=== PATIENT | female | born 1940 | race Caucasian/White ===

== ENCOUNTER 2018-03-11 19:19 | Observation (INO) ==
[2018-03-11] MEDS ORDERED: 0.9 % Sodium Chloride 1,000 ML IVC ONE (19:43)
[2018-03-11] MEDS ORDERED: Isovue-370 500 ML INFUS..BTL IV ONE (19:43)
[2018-03-11] MEDS ORDERED: *HR* FentaNYL (PF) 100 MCG/2 ML VIAL IVP ONE ×3 (19:45→20:56)
--- NOTE | 2018-03-11 19:51 | Emergency Department Note ---
Disposition Clinical Impression: Abdominal pain Qualifiers: Abdominal location: generalized Qualified Code(s): R10.84 - Generalized abdominal pain HTN (hypertension) Qualifiers: Hypertension type: unspecified Qualified Code(s): I10 - Essential (primary) hypertension Leukocytosis Qualifiers: Leukocytosis type: unspecified Qualified Code(s): D72.829 - Elevated white blood cell count, unspecified Disposition: Admitted As Inpatient Condition: Fair Referrals: Leonardo Romero MD [Primary Care Provider] - Abdominal Pain HPI - General Chief Complaint: ED Abdominal Pain Stated Complaint: Abdominal pain Time Seen by Provider: 03/11/18 19:34 Source: patient Mode of arrival: private vehicle Limitations: no limitations Nursing Notes Reviewed: Yes Vital Signs Reviewed: Yes - History of Present Illness HPI Narrative: 77-year-old female with a history of atrial fibrillation not currently on anticoagulation secondary to a prior hemorrhagic stroke, breast cancer, hypertension, prior subclavian surgery of unknown origin who presents to the ER with a complaint of abdominal pain. Patient reports her pain began acutely at 3 PM today. Earlier in the day she went and had a bowel movement which was diarrhea which is her baseline given that she is on magnesium. She states she then developed abrupt abdominal pain etc. undersides and goes to the middle. She is felt nauseous without vomiting. Nonbloody diarrhea. She has a past surgical history of cholecystectomy. No other complaints. Pt Subjective Complaint: abdominal pain Onset (ago): hour(s) Consistency: constant Location: diffuse Radiation: none Migration to: no migration Improves with: nothing Worsens with: nothing Associated symptoms: Reports: nausea, diarrhea. Denies: vomiting, fever, dysuria, hematuria Treatments prior to arrival: none - Related Data Home Medications Medication Instructions Recorded Confirmed Aspirin [Aspirin EC] 650 mg PO DAILY 03/11/18 03/11/18 Atenolol [Tenormin] 50 - 100 mg PO DAILY PRN 03/11/18 03/11/18 Biotin 800 mcg PO DAILY 03/11/18 03/11/18 Cholecalciferol (D-3) [Vitamin D] 3,000 unit PO DAILY 03/11/18 03/11/18 CloNIDine Patch [Catapres-Tts] 0.1 mg TD QWEEK 03/11/18 03/11/18 Cyanocobalamin (Vitamin B-12) 1,000 mcg PO DAILY 03/11/18 03/11/18 [Vitamin B12] Furosemide [Lasix] 20 mg PO DAILY 03/11/18 03/11/18 HYDROcodone/Acet 10/325 mg [[place] 1 tab PO Q6HR PRN 03/11/18 03/11/18 10-325 mg] Magnesium Oxide [Magnesium] 400 mg PO DAILY 03/11/18 03/11/18 Meclizine HCl [Verticalm] 25 mg PO DAILY PRN 03/11/18 03/11/18 Ondansetron HCl [Zofran] 4 mg PO DAILY PRN 03/11/18 03/11/18 Patiromer Calcium Sorbitex 8.4 gm PO DAILY 03/11/18 03/11/18 [Veltassa] Promethazine [Phenergan] 12.5 mg PO DAILY PRN 03/11/18 03/11/18 Rosuvastatin [Crestor] 20 mg PO HS PRN 03/11/18 03/11/18 Spironolactone [Aldactone] 100 mg PO DAILY 03/11/18 03/11/18 Turmeric Root Extract [Turmeric] 500 mg PO DAILY 03/11/18 03/11/18 Ubidecarenone [Coq10] 200 mg PO DAILY 03/11/18 03/11/18 Vitamin B Complex [B Complex] 1 tab PO DAILY 03/11/18 03/11/18 diazePAM [Valium] 5 mg PO BID 03/11/18 03/11/18 predniSONE [PredniSONE] 2 mg PO DAILY 03/11/18 03/11/18 Allergies Allergy/AdvReac Type Severity Reaction Status Date / Time codeine AdvReac Nausea Verified 06/13/16 18:45 morphine AdvReac See Verified 06/13/16 18:45 Comments Tetracycline AdvReac See Verified 06/13/16 18:45 Comments All systems ED: reviewed and negative except as stated. Constitutional: Denies: fever Gastrointestinal: Reports: abdominal pain, nausea, diarrhea. Denies: vomiting Genitourinary: Denies: dysuria, hematuria Abdominal Pain PMH - Past Medical History Medical history: Reports: hypertension, other Female Surgical History: Reports: other Psychiatric history: Reports: no psych history - Social History Smoking status: Never smoker Alcohol use: Reports: none Drug use: Reports: none Physical Exam - General Limitations: no limitations General appearance: alert, in distress - Head Head exam: atraumatic, normocephalic - Eye Eye exam: Present: normal appearance - ENT ENT exam: normal exam - Neck Neck exam: Present: normal inspection - Chest Chest inspection: Present: normal inspection, symmetric chest wall rise - Respiratory Respiratory exam: Present: normal lung sounds bilaterally - Cardiovascular Cardiovascular exam: Present: regular rate, normal rhythm, normal heart sounds - Abdominal Exam Abdominal exam: Present: tenderness (Diffuse tenderness with voluntary guarding) , distention, guarding. Absent: rigidity - Extremities Exam Extremities exam: Present: normal inspection, full ROM - Expanded Upper Extremity Exam Shoulder exam: Present: normal inspection, full ROM Arm exam: Present: normal inspection, full ROM Elbow exam: Present: normal inspection, full ROM Forearm/Wrist exam: Present: normal inspection, full ROM Hand exam: Present: normal inspection, full ROM - Expanded Lower Extremity Exam Hip/Pelvis exam: Present: normal inspection, full ROM Upper leg exam: Present: normal inspection, full ROM Knee exam: Present: normal inspection, full ROM Lower leg exam: Present: normal inspection, full ROM Ankle exam: Present: normal inspection, full ROM Foot/toe exam: Present: normal inspection, full ROM - Skin Skin exam: Present: warm, dry Course Course Narrative: Patient seen and examined. Significant concern given her history as well as exam findings. Discussed with radiology for emergent angiogram of the abdomen in lieu of labs. The patient will be taken now for evaluation 19:54 - Reevaluation(s) Reevaluation #1: Patient remains in pain after 2 doses of femoral. Additional dose ordered as well as Dilaudid. Surgery re-paged. Time: 20:58 Reevaluation #2: Discussed results of imaging with the patient. Agreeable with plan. Request something else for pain. - Consultations Consultation #1: I spoke with the radiologist reading the patient's images. Discussed the patient's history and exam as well as concerns. They see no evidence of embolic event. She is noted to have a dilated appendix with an appendicolith with concerns for potential early acute appendicitis. Consultation #2: I spoke with the on-call surgeon Dr. Nielsen. Discussed the patient's history exam imaging and labs. She demonstrates involuntary guarding on exam. Angiogram was negative for findings of ischemia or embolic events. She has severe peripheral vascular disease. Labs demonstrated a leukocytosis of 17.5 with a normal lactate. Discussed her exam as well as gestalt. Her history does not seem consistent with appendicitis given the abrupt nature of her symptoms. They recommend admission to the hospitalist with surgical consultation. Consultation #3: I spoke with the on-call vascular surgeon Dr. Valero. Discussed the patient's history exam as well as imaging and labs. Discussed peritoneal features. Also discussed speaking with the radiologist to confirm that the patient had distal flow without evidence of embolism or occlusion. They have no acute recommendations from a vascular standpoint. They recommend serial exams, IV fluids as well as to recheck lactic acids. Vital Signs Temperature 97.8 F 03/11/18 20:50 Pulse Rate 73 03/11/18 20:50 Respiratory Rate 18 03/11/18 20:50 Blood Pressure 211/81 03/11/18 20:50 O2 Sat by Pulse Oximetry 95 03/11/18 20:50 Temperature 97.8 F 03/11/18 20:50 Pulse Rate 73 03/11/18 20:50 Respiratory Rate 18 03/11/18 20:50 Blood Pressure 211/81 03/11/18 20:50 O2 Sat by Pulse Oximetry 95 03/11/18 20:50 Oxygen Delivery Oxygen Delivery Room Air Abdominal Pain - MDM Narrative Medical decision making narrative: 77-year-old female with abdominal pain since 3 PM today. Noted to have a leukocytosis of 17.[address] findings suggestive of early acute appendicitis. Pain was difficult to control in the emergency department requiring multiple doses of narcotics. Her exam is concerning which prompted discussions with both general surgery and vascular surgery. I personally spoke with the radiologist as well who saw patent flow without evidence of acute embolism. The patient is admitted to the hospitalist service for pain control, serial exams, serial lactate evaluations with surgical and vascular consultations. - Lab Data Lab results reviewed: Yes I reviewed the patient's lab results. Result diagrams: 03/11/18 19:43 03/11/18 19:43 Lab Results 03/11/18 03/11/18 03/11/18 Range/Units 19:43 19:43 19:43 WBC 17.5 H (4.3-11.1) K/mcL RBC 4.66 (3.82-4.97) M/mcL Hgb 15.0 (11.5-15.4) g/dL Hct 44.7 (35.3-44.9) % MCV 95.9 (83.0-100.0) fL MCH 32.2 (28.0-33.3) pg MCHC 33.6 (31.6-35.5) g/dL RDW 13.0 (11.5-14.5) % Plt Count 253 (140-400) K/mcL MPV 10.6 (9.4-12.4) fL Immature Gran % 0.5 (0-4) % Seg Neutrophils % 79.6 % Lymphocytes % 10.0 % Monocytes % 8.7 % Eosinophils % 0.7 % Basophils % 0.5 % Neutrophils # 14.0 H (1.6-8.9) K/mcL Lymphocytes # 1.8 (0.6-4.6) K/mcL Monocytes # 1.5 H (0.0-1.3) K/mcL Eosinophils # 0.1 (0.0-0.6) K/mcL Basophils # 0.1 (0.0-0.2) K/mcL PT 11.8 (9.4-12.1) Seconds INR 1.0 APTT 31.8 (26.0-36.0) Seconds Sodium 137 (136-145) mEq/L Potassium 4.1 (3.5-5.1) mEq/L Chloride 94 L (98-107) mEq/L Carbon Dioxide 34 H (23-29) mEq/L BUN 28 H (8-23) mg/dL Creatinine 0.94 (0.60-1.20) mg/dL Est GFR ( Amer) > 60 (> 60) Est GFR (Non-Af Amer) 57 L (> 60) BUN/Creatinine Ratio 30 H (6-26) Glucose 159 H (70-105) mg/dL Calculated Osmolality 293 (280-300) Lactic Acid (0.5-2.2) mmol/L Calcium 10.6 H (8.6-10.3) mg/dL Total Bilirubin 0.5 (0.3-1.0) mg/dL Direct Bilirubin 0.1 (0.0-0.2) mg/dL Indirect Bilirubin 0.4 (0.0-1.2) mg/dL AST 19 (13-39) Units/L ALT 19 (7-52) Units/L Alkaline Phosphatase 59 (34-104) Units/L Troponin I < 0.03 (< 0.04) ng/mL Serum Total Protein 7.2 (6.4-8.9) g/dL Albumin 4.2 (3.5-5.7) g/dL Globulin 3.0 (2.4-3.5) g/dL Albumin/Globulin Ratio 1.4 (1.1-2.2) Lipase 24 (11-82) Units/L Urine Color (Yellow) Urine Clarity (Clear) Urine pH (5.0-8.0) pH Units Ur Specific [place] (1.010-1.025) Urine Protein (Neg-Trace) mg/dL Urine Glucose (UA) (Normal) mg/dL Urine Ketones (Negative) mg/dL Urine Blood (Negative) Urine Nitrite (Negative) Urine Bilirubin (Negative) Urine Urobilinogen (Normal) mg/dL Ur Leukocyte Esterase (Negative) Urine Microscopic RBC (0-3) per hpf Urine Microscopic WBC (0-3) per hpf Ur Squamous Epith Cells (None-Few) per lpf Urine Bacteria (None-Few) per hpf Hyaline Casts (None-Few) per lpf Ur Culture Indicated? (NO) 03/11/18 03/11/18 Range/Units 20:22 20:42 WBC (4.3-11.1) K/mcL RBC (3.82-4.97) M/mcL Hgb (11.5-15.4) g/dL Hct (35.3-44.9) % MCV (83.0-100.0) fL MCH (28.0-33.3) pg MCHC (31.6-35.5) g/dL RDW (11.5-14.5) % Plt Count (140-400) K/mcL MPV (9.4-12.4) fL Immature Gran % (0-4) % Seg Neutrophils % % Lymphocytes % % Monocytes % % Eosinophils % % Basophils % % Neutrophils # (1.6-8.9) K/mcL Lymphocytes # (0.6-4.6) K/mcL Monocytes # (0.0-1.3) K/mcL Eosinophils # (0.0-0.6) K/mcL Basophils # (0.0-0.2) K/mcL PT (9.4-12.1) Seconds INR APTT (26.0-36.0) Seconds Sodium (136-145) mEq/L Potassium (3.5-5.1) mEq/L Chloride (98-107) mEq/L Carbon Dioxide (23-29) mEq/L BUN (8-23) mg/dL Creatinine (0.60-1.20) mg/dL Est GFR ( Amer) (> 60) Est GFR (Non-Af Amer) (> 60) BUN/Creatinine Ratio (6-26) Glucose (70-105) mg/dL Calculated Osmolality (280-300) Lactic Acid 1.3 (0.5-2.2) mmol/L Calcium (8.6-10.3) mg/dL Total Bilirubin (0.3-1.0) mg/dL Direct Bilirubin (0.0-0.2) mg/dL Indirect Bilirubin (0.0-1.2) mg/dL AST (13-39) Units/L ALT (7-52) Units/L Alkaline Phosphatase (34-104) Units/L Troponin I (< 0.04) ng/mL Serum Total Protein (6.4-8.9) g/dL Albumin (3.5-5.7) g/dL Globulin (2.4-3.5) g/dL Albumin/Globulin Ratio (1.1-2.2) Lipase (11-82) Units/L Urine Color Yellow (Yellow) Urine Clarity Clear (Clear) Urine pH 6.5 (5.0-8.0) pH Units Ur Specific [place] 1.030 H (1.010-1.025) Urine Protein Negative (Neg-Trace) mg/dL Urine Glucose (UA) Normal (Normal) mg/dL Urine Ketones Negative (Negative) mg/dL Urine Blood Negative (Negative) Urine Nitrite Negative (Negative) Urine Bilirubin Negative (Negative) Urine Urobilinogen Normal (Normal) mg/dL Ur Leukocyte Esterase Trace H (Negative) Urine Microscopic RBC 0-3 (0-3) per hpf Urine Microscopic WBC 3-5 H (0-3) per hpf Ur Squamous Epith Cells Moderate H (None-Few) per lpf Urine Bacteria None Seen (None-Few) per hpf Hyaline Casts None Seen (None-Few) per lpf Ur Culture Indicated? YES A (NO) - Radiology Data Radiology results reviewed: Yes I reviewed the patient's radiology results. Abdomen/Pelvis CTA 03/11/18 19:44 IMPRESSION: 1. Newly dilated fluid filled appendix up to 9 mm with appendicolith at the appendiceal origin. Although there are no periappendiceal inflammatory changes, findings are concerning for early acute appendicitis. No adjacent abscess. No free intraperitoneal air. 2. Severe atherosclerosis. 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 Collateral flow is noted in the left common femoral and superficial femoral arteries. 3. 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 No vessel occlusion or mesenteric arterial embolus identified. Findings were discussed with Gerhard Hartley at 8:50 pm on 03/11/2018. D/ / 03/11/2018 20:55:09 Odell Galan MD / [facility] Interpreting Provider: MD Whitney Granda - Whitney Situation: Demographics, MOA Background: Presenting Complaint, Relevant PMH, Meds, & Allergies Assessment: Vital Signs, Course and respsone to treatment, Exam Concerns, Patient/Family Expectation, Pertinant Lab Results Recommendation: Barrier(s) to disposition, Recommendation based on pending studies, treatments, or consults Whitney Report Given to: Dr. Ally Olson Repor Time: 21:16 (Requests vascular surgery consultation)
[2018-03-11] MEDS: Ondansetron 4 MG/2 ML VIAL IVP ONE ×2 (19:58→20:47)
[2018-03-11 20:15] LABS: Basophils # 0.1 K/mcL (0.0-0.2); Basophils % 0.5 %; Eosinophils # 0.1 K/mcL (0.0-0.6); Eosinophils % 0.7 %; Hematocrit 44.7 % (35.3-44.9); Immature Granulocytes % 0.5 % (0-4); Lymphocytes # 1.8 K/mcL (0.6-4.6); Mean Corpuscular HGB Conc 33.6 g/dL (31.6-35.5); Mean Corpuscular Hemoglobin 32.2 pg (28.0-33.3); Mean Corpuscular Volume 95.9 fL (83.0-100.0); Mean Platelet Volume 10.6 fL (9.4-12.4); Monocytes # 1.5 K/mcL (0.0-1.3); Monocytes % 8.7 %; Platelet Count 253 K/mcL (140-400); Red Blood Count 4.66 M/mcL (3.82-4.97); Segmented Neutrophils % 79.6 %
[2018-03-11 20:25] LABS: Prothrombin Time 11.8 Seconds (9.4-12.1)
[2018-03-11 20:28] LABS: Activated Partial Thrombo Time 31.8 Seconds (26.0-36.0)
--- NOTE | 2018-03-11 20:31 | Emergency Department Note ---
Disposition Clinical Impression: Abdominal pain Qualifiers: Abdominal location: generalized Qualified Code(s): R10.84 - Generalized abdominal pain HTN (hypertension) Qualifiers: Hypertension type: unspecified Qualified Code(s): I10 - Essential (primary) hypertension Disposition: Admitted As Inpatient Referrals: Leonardo Romero MD [Primary Care Provider] - General Adult HPI - General Chief complaint: ED Abdominal Pain Stated complaint: Abdominal pain Time Seen by Provider: 03/11/18 19:34 Source: patient Mode of arrival: private vehicle Limitations: no limitations - Related Data Home Medications Medication Instructions Recorded Confirmed Adult Probiotic 06/13/16 Aspirin 06/13/16 Atenolol 06/13/16 Biotin 06/13/16 Cardura 06/13/16 06/13/16 CloNIDine HCl 06/13/16 CloNIDine Patch 06/13/16 Co Q-10 06/13/16 Crestor 06/13/16 D3 3,000 06/13/16 Diazepam 06/13/16 Furosemide 06/13/16 Garlic 06/13/16 Hydrocodone-Acetamin 10-325/15 06/13/16 Meclizine 06/13/16 PredniSONE 06/13/16 Zinc 06/13/16 Previous Rx's Medication Instructions Recorded levoFLOXacin [Levaquin] 500 mg PO DAILY #7 tablet 06/13/16 Brompheniramine/Pseudoephed/Dm 5 ml PO QID #118 ml 07/06/16 [Bromfed Dm Cough Syrup] Cefdinir [Omnicef] 300 mg PO BID #20 capsule 07/06/16 methylPREDNISolone [Medrol] 4 mg PO DAILY #21 tablet 07/06/16 Hydrocortisone 2.5% CREAM [Cortaid] 1 appl TP BID #1 tube 08/31/16 cloNIDine HCl [CloNIDine HCl] 0.1 mg PO ONCE PRN #10 tablet 09/01/17 levoFLOXacin [Levaquin] 250 mg PO DAILY #7 tablet 09/01/17 Lidocaine Patch [Lidoderm 5% patch] 1 each TP DAILY PRN #10 adh..patch 12/03/17 Allergies Allergy/AdvReac Type Severity Reaction Status Date / Time codeine AdvReac Nausea Verified 06/13/16 18:45 morphine AdvReac See Verified 06/13/16 18:45 Comments Tetracycline AdvReac See Verified 06/13/16 18:45 Comments Constitutional: Denies: fever Gastrointestinal: Reports: abdominal pain, nausea, diarrhea. Denies: vomiting Genitourinary: Denies: dysuria, hematuria Past Medical History - Past Medical History Medical history: Reports: hypertension, other Psychiatric history: Reports: no psych history - Social History Smoking Status: Never smoker Smokeless Tobacco Status: No Alcohol use: Reports: none Drug use: Reports: none Physical Exam - General Limitations: no limitations General appearance: alert, in distress Medical Decision Making - Lab Data Result diagrams: 03/11/18 19:43 03/11/18 19:43 Lab Results 03/11/18 03/11/18 03/11/18 Range/Units 19:43 19:43 19:43 WBC 17.5 H (4.3-11.1) K/mcL RBC 4.66 (3.82-4.97) M/mcL Hgb 15.0 (11.5-15.4) g/dL Hct 44.7 (35.3-44.9) % MCV 95.9 (83.0-100.0) fL MCH 32.2 (28.0-33.3) pg MCHC 33.6 (31.6-35.5) g/dL RDW 13.0 (11.5-14.5) % Plt Count 253 (140-400) K/mcL MPV 10.6 (9.4-12.4) fL Immature Gran % 0.5 (0-4) % Seg Neutrophils % 79.6 % Lymphocytes % 10.0 % Monocytes % 8.7 % Eosinophils % 0.7 % Basophils % 0.5 % Neutrophils # 14.0 H (1.6-8.9) K/mcL Lymphocytes # 1.8 (0.6-4.6) K/mcL Monocytes # 1.5 H (0.0-1.3) K/mcL Eosinophils # 0.1 (0.0-0.6) K/mcL Basophils # 0.1 (0.0-0.2) K/mcL PT 11.8 (9.4-12.1) Seconds INR 1.0 APTT 31.8 (26.0-36.0) Seconds Sodium 137 (136-145) mEq/L Potassium 4.1 (3.5-5.1) mEq/L Chloride 94 L (98-107) mEq/L Carbon Dioxide 34 H (23-29) mEq/L BUN 28 H (8-23) mg/dL Creatinine 0.94 (0.60-1.20) mg/dL Est GFR ( Amer) > 60 (> 60) Est GFR (Non-Af Amer) 57 L (> 60) BUN/Creatinine Ratio 30 H (6-26) Glucose 159 H (70-105) mg/dL Calculated Osmolality 293 (280-300) Lactic Acid (0.5-2.2) mmol/L Calcium 10.6 H (8.6-10.3) mg/dL Total Bilirubin 0.5 (0.3-1.0) mg/dL Direct Bilirubin 0.1 (0.0-0.2) mg/dL Indirect Bilirubin 0.4 (0.0-1.2) mg/dL AST 19 (13-39) Units/L ALT 19 (7-52) Units/L Alkaline Phosphatase 59 (34-104) Units/L Troponin I < 0.03 (< 0.04) ng/mL Serum Total Protein 7.2 (6.4-8.9) g/dL Albumin 4.2 (3.5-5.7) g/dL Globulin 3.0 (2.4-3.5) g/dL Albumin/Globulin Ratio 1.4 (1.1-2.2) Lipase 24 (11-82) Units/L // Range/Units 20:22 WBC (4.3-11.1) K/mcL RBC (3.82-4.97) M/mcL Hgb (11.5-15.4) g/dL Hct (35.3-44.9) % MCV (83.0-100.0) fL MCH (28.0-33.3) pg MCHC (31.6-35.5) g/dL RDW (11.5-14.5) % Plt Count (140-400) K/mcL MPV (9.4-12.4) fL Immature Gran % (0-4) % Seg Neutrophils % % Lymphocytes % % Monocytes % % Eosinophils % % Basophils % % Neutrophils # (1.6-8.9) K/mcL Lymphocytes # (0.6-4.6) K/mcL Monocytes # (0.0-1.3) K/mcL Eosinophils # (0.0-0.6) K/mcL Basophils # (0.0-0.2) K/mcL PT (9.4-12.1) Seconds INR APTT (26.0-36.0) Seconds Sodium (136-145) mEq/L Potassium (3.5-5.1) mEq/L Chloride (98-107) mEq/L Carbon Dioxide (23-29) mEq/L BUN (8-23) mg/dL Creatinine (0.60-1.20) mg/dL Est GFR ( Amer) (> 60) Est GFR (Non-Af Amer) (> 60) BUN/Creatinine Ratio (6-26) Glucose (70-105) mg/dL Calculated Osmolality (280-300) Lactic Acid 1.3 (0.5-2.2) mmol/L Calcium (8.6-10.3) mg/dL Total Bilirubin (0.3-1.0) mg/dL Direct Bilirubin (0.0-0.2) mg/dL Indirect Bilirubin (0.0-1.2) mg/dL AST (13-39) Units/L ALT (7-52) Units/L Alkaline Phosphatase (34-104) Units/L Troponin I (< 0.04) ng/mL Serum Total Protein (6.4-8.9) g/dL Albumin (3.5-5.7) g/dL Globulin (2.4-3.5) g/dL Albumin/Globulin Ratio (1.1-2.2) Lipase (11-82) Units/L Attestation Statement - Attestation Attestation: I examined this patient and my medical decision-making was reviewed with the Resident Physician. I agree with the documented findings, disposition and treatment plan as described except to the extent set forth below. 77-year-old female presents emergency room for abdominal pain. Started suddenly this afternoon around 3 PM. Patient is guarding and very tender. seems peritoneal. possible perf vs ischemic. Radiology feels that she may have an early appendicitis based on her CT findings. She is also to hypertensive secondary to pain. She has a lot of guarding or peritoneal findings. We will consult with general surgery. Her lactate is negative which would rule out any ischemic properties and her CTA of the abdomen and pelvis did not reveal any acute occlusions. The only thing at this time is the abnormal appendix which is dilated with a appendicolith. This would indicate more acute appendicitis at this point and based on her physical examination this would indicate acute appy will tx her pain and see if her BP comes down.
[2018-03-11 20:32] LABS: Troponin I < 0.03 ng/mL (< 0.04)
[2018-03-11 20:33] LABS: Alanine Aminotransferase 19 Units/L (7-52); Albumin 4.2 g/dL (3.5-5.7); Albumin/Globulin Ratio 1.4 (1.1-2.2); Alkaline Phosphatase 59 Units/L (34-104); Aspartate Amino Transferase 19 Units/L (13-39); BUN/Creatinine Ratio 30 (6-26); Bilirubin,Direct 0.1 mg/dL (0.0-0.2); Bilirubin,Indirect 0.4 mg/dL (0.0-1.2); Bilirubin,Total 0.5 mg/dL (0.3-1.0); Blood Urea Nitrogen 28 mg/dL (8-23); Calcium 10.6 mg/dL (8.6-10.3); Carbon Dioxide 34 mEq/L (23-29); Chloride 94 mEq/L (98-107); Glucose 159 mg/dL (70-105); Lipase 24 Units/L (11-82); Osmolality,Calculated 293 (280-300); Potassium 4.1 mEq/L (3.5-5.1); Sodium 137 mEq/L (136-145); Total Protein 7.2 g/dL (6.4-8.9); eGFR For Non-African Americans 57 (> 60)
[2018-03-11] MEDS ORDERED: Ondansetron 4 MG/2 ML VIAL ONE (20:41)
[2018-03-11 20:53] LABS: Bilirubin,Urine Negative (Negative); Blood,Urine Negative (Negative); Clarity,Urine Clear (Clear); Color,Urine Yellow (Yellow); Glucose,Urine (UA) Normal (Normal); Ketones,Urine Negative (Negative); Leukocyte Esterase,Urine Trace (Negative); Nitrite,Urine Negative (Negative); PH,Urine 6.5 pH Units (5.0-8.0); Protein,Urine Negative (Neg-Trace); Urobilinogen,Urine Normal (Normal)
[2018-03-11] MEDS ORDERED: *HR* HYDROmorphone (PF) 1 MG/ML SYRINGE IVP ONE (20:53)
[2018-03-11 20:57] LABS: Bacteria,Urine None Seen per hpf (None-Few); Hyaline Casts,Urine None Seen per lpf (None-Few); RBC,Urine 0-3 per hpf (0-3); Squamous Epithelial Cell,Urine Moderate per lpf (None-Few)
[2018-03-11] MEDS ORDERED: Piperacillin/Tazobactam 3.375 GM in 0.9 % Sodium Chloride Mini Bag 100 ML IVPB ONE (20:57)
[2018-03-11] MEDS ORDERED: Ondansetron 4 MG/2 ML VIAL IVP PRN (21:15)
[2018-03-11] MEDS ORDERED: Naloxone 0.4 MG/ML INJ IVP PRN (21:15)
[2018-03-11] MEDS ORDERED: OXYCODONE Oral CONC 10 MG/0.5 ML ORAL.SYG SL PRN (21:15)
[2018-03-11] MEDS ORDERED: *HR* Labetalol 20 MG/4 ML SYRINGE IVP PRN (21:24)
--- NOTE | 2018-03-11 21:56 | Internal Med History&Physical ---
Date of Encounter: 03/11/18 Time of Encounter: 22:30 Internal Medicine - H&P: HPI Chief complaint: abdominal pain Admitted From: Home History of present illness: Ms. Mendez is a 77 year old female with history of atrial fibrillation not currently on anticoagulation secondary to a prior hemorrhagic stroke, CAD status post CABG, breast cancer, hypertension, presented to the ER with abdominal pain. Patient states that her pain acutely started at about 3:00 this afternoon. She also had watery diarrhea prior to the onset of abdominal pain for which she took Magnesium. Generalized, non-radiating, no aggravating/ relieving factors. She is felt nauseous but did not vomit. Diarrhea was non- bloody, non-bilious. She states that she has intermittnet bloating and "abdominal swelling' that happens usually after she eats. She has a past surgical history of cholecystectomy. Denies any chest pain, shortness of breath , cough, sputum production, or dysuria. In the emergency department, she was afebrile and hemodynamically stable. Blood pressure was elevated at 211/81. Labs were notable for leukocytosis of 17.5. Normal lactic acid and creatinine. Troponin and lipase were both negative. CT abdomen showed changes possibly suggestive of early acute appendicitis. 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 Her findings were discussed with both surgery and vascular surgery from the ED and it was decided to manage her conservatively and follow her up with serial exams. She was started on IV fluid and IV Zosyn and admitted for further management. Past Med Surg Social Fam HX - Past Medical History Attestation: Yes The following information was validated with the patient. Medical history: coronary artery disease, hypertension, other Additional medical history: brain bleed Psychiatric history: no psych history - Past Surgical History Surgical History: coronary bypass (CABG) Additional surgical history: Brain/surgery for blood flow - Social History Smoking Status: Never smoker Smokeless Tobacco Status: No Alcohol use: none Drug use: none Internal Medicine - H&P: Meds Aspirin [Aspirin EC] 650 mg PO DAILY 03/11/18 [History] Atenolol [Tenormin] 50 - 100 mg PO DAILY PRN 03/11/18 [History] Biotin 800 mcg PO DAILY 03/11/18 [History] Cholecalciferol (D-3) [Vitamin D] 3,000 unit PO DAILY 03/11/18 [History] CloNIDine Patch [Catapres-Tts] 0.1 mg TD QWEEK 03/11/18 [History] Cyanocobalamin (Vitamin B-12) [Vitamin B12] 1,000 mcg PO DAILY 03/11/18 [History ] Furosemide [Lasix] 20 mg PO DAILY 03/11/18 [History] HYDROcodone/Acet 10/325 mg [[place] 10-325 mg] 1 tab PO Q6HR PRN 03/11/18 [History ] Magnesium Oxide [Magnesium] 400 mg PO DAILY 03/11/18 [History] Meclizine HCl [Verticalm] 25 mg PO DAILY PRN 03/11/18 [History] Ondansetron HCl [Zofran] 4 mg PO DAILY PRN 03/11/18 [History] Patiromer Calcium Sorbitex [Veltassa] 8.4 gm PO DAILY 03/11/18 [History] Promethazine [Phenergan] 12.5 mg PO DAILY PRN 03/11/18 [History] Rosuvastatin [Crestor] 20 mg PO HS PRN 03/11/18 [History] Spironolactone [Aldactone] 100 mg PO DAILY 03/11/18 [History] Turmeric Root Extract [Turmeric] 500 mg PO DAILY 03/11/18 [History] Ubidecarenone [Coq10] 200 mg PO DAILY 03/11/18 [History] Vitamin B Complex [B Complex] 1 tab PO DAILY 03/11/18 [History] diazePAM [Valium] 5 mg PO BID 03/11/18 [History] predniSONE [PredniSONE] 2 mg PO DAILY 03/11/18 [History] 3 Allergy/AdvReac Type Severity Reaction Status Date / Time codeine AdvReac Nausea Verified 06/13/16 18:45 morphine AdvReac See Verified 06/13/16 18:45 Comments Tetracycline AdvReac See Verified 06/13/16 18:45 Comments All Systems PM: A 10-system review of systems was performed and is negative for pertinent findings except as documented above in the HPI. - Constitutional Vitals: Temp Pulse Resp BP Pulse Ox 97.8 F 73 18 211/81 95 03/11/18 20:50 03/11/18 20:50 03/11/18 20:50 03/11/18 20:50 03/11/18 20:50 Exam: General: Alert and oriented, mild distress due to pain HEENT:EOM, pupils equal, round and reactive. Cardiovascular:Normal S1 & S2, No JVD. Pulse regular. Lungs: clear to auscultation, no wheezes/rales Abdomen:Soft, generalized tenderness worst on RLQ region. Voluntary guarding. No rebound/rigidity. Extremities:No deformity or swelling Neurological:Normal cognition and motor skills. Non-focal Skin:Normal color, no rash, no lesions. Pulses:Carotid and radial pulses normal +2. Rest of the physical exam is non contributory Internal Med - H&P Results - Labs CBC & Chem 7: 03/11/18 19:43 03/11/18 19:43 - Assessment and plan (1) Abdominal pain Current Visit: Yes Status: Acute Assessment and plan: Unclear whether it is due to early appendicitis versus acute on chronic mesenteric ischemia Regardless, there is no evidence of perforation or bowel necrosis. Given her significant cardiac history, will rule out ACS with another troponin. Check EKG Started on IV fluid and IV Zosyn in the ER, continue Serial abdominal exam Check lactic acid again in the morning Following surgery and vascular surgery Qualifiers: Abdominal location: generalized Qualified Code(s): R10.84 - Generalized abdominal pain (2) Atrial fibrillation Current Visit: Yes Status: Acute Assessment and plan: Not on anticoagulation due to history of hemorrhagic stroke as the risk of arterial embolism is high no evidence of embolus on CTA however will continue to monitor as above, resume atenolol when able to take by mouth Qualifiers: Atrial fibrillation type: unspecified Qualified Code(s): I48.91 - Unspecified atrial fibrillation (3) CAD (coronary artery disease) Current Visit: Yes Status: Acute Assessment and plan: Management as above Resume all meds when able to Qualifiers: Coronary Disease-Associated Artery/Lesion type: unspecified vessel or lesion type [place] vs. transplanted heart: pala heart Associated angina: angina presence unspecified Qualified Code(s): I25.10 - Atherosclerotic heart disease of pala coronary artery without angina pectoris (4) Hypertension Current Visit: Yes Status: Acute Assessment and plan: On Aldactone, clonidine patch, and atenolol Since patient is nothing by mouth, will continue the clonidine patch with when necessary labetalol. Qualifiers: Hypertension type: unspecified Qualified Code(s): I10 - Essential (primary ) hypertension (5) DVT prophylaxis Current Visit: Yes Status: Acute Assessment and plan: History of hemorrhagic stroke, not on anticoagulation for A. fib as well SCD - Time Spent With Patient Total time spent is greater than 50% in coordination of care (as documented) at patient's floor/unit and/or counseling patient:
[2018-03-11] MEDS ORDERED: *HR* Promethazine 25 MG/ML VIAL IVP PRN (22:57)
[2018-03-11] MEDS: OXYCODONE Oral CONC 10 MG/0.5 ML ORAL.SYG SL PRN (23:22)
[2018-03-11] MEDS ORDERED: CloNIDine Patch 0.1 MG PATCH (WEEKLY) TD SCH (23:45)
[2018-03-12] MEDS: 0.9 % Sodium Chloride 1,000 ML IVC SCH ×2 (01:08→12:06)
[2018-03-12] MEDS: *HR* FentaNYL (PF) 100 MCG/2 ML VIAL IVP PRN ×4 (01:13→23:30)
[2018-03-12 02:17] LABS: BUN/Creatinine Ratio 24 (6-26); Blood Urea Nitrogen 21 mg/dL (8-23); Calcium 10.4 mg/dL (8.6-10.3); Carbon Dioxide 32 mEq/L (23-29); Chloride 94 mEq/L (98-107); Glucose 159 mg/dL (70-105); Magnesium 1.6 mg/dL (1.6-2.6); Osmolality,Calculated 286 (280-300); Potassium 3.8 mEq/L (3.5-5.1); Sodium 135 mEq/L (136-145); eGFR For Non-African Americans > 60 (> 60)
[2018-03-12 02:19] LABS: Basophils # 0.1 K/mcL (0.0-0.2); Basophils % 0.3 %; Hematocrit 45.6 % (35.3-44.9); Hemoglobin 15.1 g/dL (11.5-15.4); Immature Granulocytes % 0.5 % (0-4); Lymphocytes # 0.7 K/mcL (0.6-4.6); Lymphocytes % 3.7 %; Mean Corpuscular HGB Conc 33.1 g/dL (31.6-35.5); Mean Corpuscular Hemoglobin 32.5 pg (28.0-33.3); Mean Corpuscular Volume 98.3 fL (83.0-100.0); Mean Platelet Volume 11.2 fL (9.4-12.4); Monocytes % 5.4 %; Neutrophils # 17.1 K/mcL (1.6-8.9); Platelet Count 241 K/mcL (140-400); Red Blood Count 4.64 M/mcL (3.82-4.97); Red Cell Distribution Width 12.8 % (11.5-14.5); Segmented Neutrophils % 90.1 %
[2018-03-12] MEDS ORDERED: 0.9 % Sodium Chloride 1,000 ML IVC ONE (02:45)
[2018-03-12] MEDS: Piperacillin/Tazobactam 3.375 GM in 0.9 % Sodium Chloride Mini Bag 100 ML IVPB SCH ×2 (05:57→17:59)
[2018-03-12] MEDS: OXYCODONE Oral CONC 10 MG/0.5 ML ORAL.SYG SL PRN ×2 (06:11→12:06)
--- NOTE | 2018-03-12 07:57 | General Surgery Consult Note ---
<Ana Cristina Scales E - Last Filed: 03/12/18 08:16> Date of Encounter: 03/12/18 Time of Encounter: 07:50 Assessment and Plan (1) Acute appendicitis Current Visit: Yes Status: Acute Yesterday patient had acute diffuse abdominal discomfort with no periappendiceal changes, today ahs localized tenderness in the RLQ. WBC count increased to 19 from 17.[address] scan shows newly dilated fluid filled appendiz with appendicolith, no adjacent abscess, no free intraperitoneal air. This is concerning for acute appendicitis Surgery recommends laproscopic appendectomy today NPO IV fluids as per primary Pain control Supportive care CT/CT angio abdomen pelvis IMPRESSION: 1. Newly dilated fluid filled appendix up to 9 mm with appendicolith at the appendiceal origin. Although there are no periappendiceal inflammatory changes, findings are concerning for early acute appendicitis. No adjacent abscess. No free intraperitoneal air. 2. Severe atherosclerosis. 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 Collateral flow is noted in the left common femoral and superficial femoral arteries. 3. 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 No vessel occlusion or mesenteric arterial embolus identified. Findings were discussed with Gerhard Hartley at 8:50 pm on 03/11/2018. D/ / 03/11/2018 20:55:09 Oedll Galan MD / denise Qualifiers: Qualified Code(s): K35.80 - Unspecified acute appendicitis History of Present Illness Consult date: 03/11/18 Requesting physician: Don Canales History of present illness: Ms. Mendez is a 77 yowf who presented to the ED on 03/11/18 with diffuse abdominal pain that had began around 3pm. She states that she had some watery diarrhea before the onset of pain but she states that she has that often and she takes magnesium for this. She states she felt bloated and her upper abdomen was very painful. Today her symptoms have localized to her right lower quadrant and she has less bloating. Her medical history includes Afib which she is being treated with two aspirins a day after having a hemorrhagic stroke while on blood thinners, CAD post CABG, HTN, and breast cancer. Abdominal surgeries include cholecystectomy. Last bowel movement was yesterday, has not been able to pass gas since. Past Med Surg Social Fam HX - Past Medical History Medical history: coronary artery disease, hypertension, other Additional medical history: brain bleed Psychiatric history: no psych history - Past Surgical History Surgical History: coronary bypass (CABG) Additional surgical history: Brain/surgery for blood flow - Social History Smoking Status: Never smoker Smokeless Tobacco Status: No Alcohol use: none Drug use: none Medications and Allergies Aspirin [Aspirin EC] 650 mg PO DAILY 03/11/18 [History] Atenolol [Tenormin] 50 - 100 mg PO DAILY PRN 03/11/18 [History] Biotin 800 mcg PO DAILY 03/11/18 [History] Cholecalciferol (D-3) [Vitamin D] 3,000 unit PO DAILY 03/11/18 [History] CloNIDine Patch [Catapres-Tts] 0.1 mg TD QWEEK 03/11/18 [History] Cyanocobalamin (Vitamin B-12) [Vitamin B12] 1,000 mcg PO DAILY 03/11/18 [History ] Furosemide [Lasix] 20 mg PO DAILY 03/11/18 [History] HYDROcodone/Acet 10/325 mg [[place] 10-325 mg] 1 tab PO Q6HR PRN 03/11/18 [History ] Magnesium Oxide [Magnesium] 400 mg PO DAILY 03/11/18 [History] Meclizine HCl [Verticalm] 25 mg PO DAILY PRN 03/11/18 [History] Ondansetron HCl [Zofran] 4 mg PO DAILY PRN 03/11/18 [History] Patiromer Calcium Sorbitex [Veltassa] 8.4 gm PO DAILY 03/11/18 [History] Promethazine [Phenergan] 12.5 mg PO DAILY PRN 03/11/18 [History] Rosuvastatin [Crestor] 20 mg PO HS PRN 03/11/18 [History] Spironolactone [Aldactone] 100 mg PO DAILY 03/11/18 [History] Turmeric Root Extract [Turmeric] 500 mg PO DAILY 03/11/18 [History] Ubidecarenone [Coq10] 200 mg PO DAILY 03/11/18 [History] Vitamin B Complex [B Complex] 1 tab PO DAILY 03/11/18 [History] diazePAM [Valium] 5 mg PO BID 03/11/18 [History] predniSONE [PredniSONE] 2 mg PO DAILY 03/11/18 [History] 3 Allergy/AdvReac Type Severity Reaction Status Date / Time latex Allergy Rash Verified 03/12/18 04:18 codeine AdvReac Nausea Verified 06/13/16 18:45 morphine AdvReac See Verified 06/13/16 18:45 Comments Tetracycline AdvReac See Verified 06/13/16 18:45 Comments Review of Systems All systems PM: The remainder of the systems were reviewed and are negative - Constitutional as per HPI - Cardiovascular no chest pain, no radiating jaw, neck or arm pain - Respiratory no cough, no dyspnea, no chest congestion - Gastrointestinal loose stools, nausea, no hematemesis, no melena, no vomiting General Surgery Exam Initial Vital Signs Temp Pulse Resp BP Pulse Ox 97.8 F 73 18 211/81 95 03/11/18 20:50 03/11/18 20:50 03/11/18 20:50 03/11/18 20:50 03/11/18 20:50 - General physical appearance well developed, well nourished, moderate distress - Respiratory normal expansion, normal respiratory effort, clear to auscultation - Cardiovascular Cardiovascular exam: Present: RRR, no murmurs/rubs/gallops - Abdomen Abdomen general surgery: Present: bowel sounds present, tender, guarding, rebound Abdominal Tenderness: Present: RLQ - Musculoskeletal Present: normal posture - Psychiatric Psychiatric general surgery: Present: oriented to person, oriented to place, oriented to time Exam Initial Vital Signs Temp Pulse Resp BP Pulse Ox 97.8 F 73 18 211/81 95 03/11/18 20:50 03/11/18 20:50 03/11/18 20:50 03/11/18 20:50 03/11/18 20:50 Results - Labs 03/12/18 01:37 03/12/18 01:37 Abnormal lab results WBC 19.0 K/mcL (4.3-11.1) H 03/12/18 01:37 Hct 45.6 % (35.3-44.9) H 03/12/18 01:37 Neutrophils # 17.1 K/mcL (1.6-8.9) H 03/12/18 01:37 Sodium 135 mEq/L (136-145) L 03/12/18 01:37 Chloride 94 mEq/L (98-107) L 03/12/18 01:37 Carbon Dioxide 32 mEq/L (23-29) H 03/12/18 01:37 Glucose 159 mg/dL (70-105) H 03/12/18 01:37 Calcium 10.4 mg/dL (8.6-10.3) H 03/12/18 01:37 Ur Specific [place] 1.030 (1.010-1.025) H 03/11/18 20:42 Ur Leukocyte Esterase Trace (Negative) H 03/11/18 20:42 Urine Microscopic WBC 3-5 per hpf (0-3) H 03/11/18 20:42 Ur Squamous Epith Cells Moderate per lpf (None-Few) H 03/11/18 20:42 Ur Culture Indicated? YES (NO) A 03/11/18 20:42 Diabetes panel 03/12/18 Range/Units 01:37 Sodium 135 L (136-145) mEq/L Potassium 3.8 (3.5-5.1) mEq/L Chloride 94 L (98-107) mEq/L Carbon Dioxide 32 H (23-29) mEq/L BUN 21 (8-23) mg/dL Creatinine 0.88 (0.60-1.20) mg/dL Glucose 159 H (70-105) mg/dL Calcium 10.4 H (8.6-10.3) mg/dL Calcium panel 03/12/18 Range/Units 01:37 Calcium 10.4 H (8.6-10.3) mg/dL Pituitary panel 03/12/18 Range/Units 01:37 Sodium 135 L (136-145) mEq/L Potassium 3.8 (3.5-5.1) mEq/L Chloride 94 L (98-107) mEq/L Carbon Dioxide 32 H (23-29) mEq/L BUN 21 (8-23) mg/dL Creatinine 0.88 (0.60-1.20) mg/dL Glucose 159 H (70-105) mg/dL Calcium 10.4 H (8.6-10.3) mg/dL Adrenal panel 03/12/18 Range/Units 01:37 Sodium 135 L (136-145) mEq/L Potassium 3.8 (3.5-5.1) mEq/L Chloride 94 L (98-107) mEq/L Carbon Dioxide 32 H (23-29) mEq/L BUN 21 (8-23) mg/dL Creatinine 0.88 (0.60-1.20) mg/dL Glucose 159 H (70-105) mg/dL Calcium 10.4 H (8.6-10.3) mg/dL All other labs normal. Consult Discharge Plan - Plan Referrals: Leonardo Romero MD [Primary Care Provider] - <Leeroy Nielsen - Last Filed: 03/12/18 08:40> Date of Encounter: 03/12/18 Review of Systems All systems PM: The remainder of the systems were reviewed and are negative General Surgery Exam Initial Vital Signs Temp Pulse Resp BP Pulse Ox 97.8 F 73 18 211/81 95 03/11/18 20:50 03/11/18 20:50 03/11/18 20:50 03/11/18 20:50 03/11/18 20:50 Exam Initial Vital Signs Temp Pulse Resp BP Pulse Ox 97.8 F 73 18 211/81 95 03/11/18 20:50 03/11/18 20:50 03/11/18 20:50 03/11/18 20:50 03/11/18 20:50 Results - Labs 03/12/18 01:37 03/12/18 01:37 Abnormal lab results WBC 19.0 K/mcL (4.3-11.1) H 03/12/18 01:37 Hct 45.6 % (35.3-44.9) H 03/12/18 01:37 Neutrophils # 17.1 K/mcL (1.6-8.9) H 03/12/18 01:37 Sodium 135 mEq/L (136-145) L 03/12/18 01:37 Chloride 94 mEq/L (98-107) L 03/12/18 01:37 Carbon Dioxide 32 mEq/L (23-29) H 03/12/18 01:37 Glucose 159 mg/dL (70-105) H 03/12/18 01:37 Calcium 10.4 mg/dL (8.6-10.3) H 03/12/18 01:37 Ur Specific [place] 1.030 (1.010-1.025) H 03/11/18 20:42 Ur Leukocyte Esterase Trace (Negative) H 03/11/18 20:42 Urine Microscopic WBC 3-5 per hpf (0-3) H 03/11/18 20:42 Ur Squamous Epith Cells Moderate per lpf (None-Few) H 03/11/18 20:42 Ur Culture Indicated? YES (NO) A 03/11/18 20:42 Diabetes panel 03/12/18 Range/Units 01:37 Sodium 135 L (136-145) mEq/L Potassium 3.8 (3.5-5.1) mEq/L Chloride 94 L (98-107) mEq/L Carbon Dioxide 32 H (23-29) mEq/L BUN 21 (8-23) mg/dL Creatinine 0.88 (0.60-1.20) mg/dL Glucose 159 H (70-105) mg/dL Calcium 10.4 H (8.6-10.3) mg/dL Calcium panel 03/12/18 Range/Units 01:37 Calcium 10.4 H (8.6-10.3) mg/dL Pituitary panel 03/12/18 Range/Units 01:37 Sodium 135 L (136-145) mEq/L Potassium 3.8 (3.5-5.1) mEq/L Chloride 94 L (98-107) mEq/L Carbon Dioxide 32 H (23-29) mEq/L BUN 21 (8-23) mg/dL Creatinine 0.88 (0.60-1.20) mg/dL Glucose 159 H (70-105) mg/dL Calcium 10.4 H (8.6-10.3) mg/dL Adrenal panel 03/12/18 Range/Units 01:37 Sodium 135 L (136-145) mEq/L Potassium 3.8 (3.5-5.1) mEq/L Chloride 94 L (98-107) mEq/L Carbon Dioxide 32 H (23-29) mEq/L BUN 21 (8-23) mg/dL Creatinine 0.88 (0.60-1.20) mg/dL Glucose 159 H (70-105) mg/dL Calcium 10.4 H (8.6-10.3) mg/dL All other labs normal. - Attending Attestation I examined this patient and my medical decision-making was reviewed with the Resident Physician. I agree with the documented findings, disposition and treatment plan as described except to the extent set forth below. The patient is seen and evaluated on morning rounds with the resident. The patient is a 77-year-old female with a personal history of atrial fibrillation and acute onset bilateral upper abdominal pain and bloating. She had nonlocalized abdominal pain. CAT scan demonstrated significant atherosclerotic changes to the aorta and iliac arteries that appeared to be well collateralized. She had a dilated appendix and appendicolith with no periappendiceal inflammation or fluid collections. She had no localization of her pain. She is admitted for further evaluation. Overnight, her white blood cell count went up a bit to 19,000 and she is now localized to the right lower mid abdomen just medial and superior to McBurney's point. This exactly correlates with the location of her appendix on CAT scan. This is likely early appendicitis. I have recommended laparoscopic appendectomy. Patient is somewhat hesitant because of her previous surgical experience but has decided to proceed with laparoscopic appendectomy she states that her perioperative blood pressure control is quite difficult secondary to hypertension. We will plan to proceed with laparoscopic appendectomy later today. Leeroy Nielsen MD FACS
--- NOTE | 2018-03-12 08:37 | Vascular/Endovasc Consult Note ---
Date of Encounter: 03/12/18 Time of Encounter: 08:10 Assessment and Plan (1) Peripheral vascular disease Status: Chronic The pathophysiology and natural history of peripheral vascular disease with discussed the patient and all questions were answered. The patient has evidence of bilateral lower extremity peripheral vascular disease. Her CT scan reveals a chronic left iliac artery occlusion. She denies disabling claudication, rest pain, ulceration or gangrene. Recommend continued medical therapy. Continue daily aspirin. The patient a follow-up as an outpatient. (2) Mesenteric artery stenosis Status: Chronic The patients CT scan was reviewed. She is evidence of mild to moderate mesenteric artery stenosis. She denies any symptoms of acute mesenteric ischemia or chronic mesenteric ischemia. Continue with atherosclerotic risk factor reduction. Continue daily aspirin. (3) Hypertension Status: Chronic She was counseled regarding atherosclerotic risk factor reduction. Qualifiers: Hypertension type: essential hypertension Qualified Code(s): I10 - Essential (primary) hypertension (4) Abdominal pain Status: Acute The patient's exam is consistent with acute appendicitis. This is confirmed by CT scan. General surgery is scheduled the patient for appendectomy. Qualifiers: Abdominal location: right lower quadrant Qualified Code(s): R10.31 - Right lower quadrant pain (5) Atrial fibrillation Status: Chronic Qualifiers: Atrial fibrillation type: unspecified Qualified Code(s): I48.91 - Unspecified atrial fibrillation - History of Present Illness Consult date: 03/12/18 Requesting physician: Gerhard Hartley Consult reason: Peripheral vascular disease, mesenteric artery stenosis Chief complaint: Abdominal pain History of present illness: Ms. Mendez is a 77 year old female who presented to [facility] with complaints of diffuse abdominal pain. As part of her evaluation she underwent a CT scan which revealed an enlarged appendix as well as significant vascular calcifications described as severe atherosclerosis by the radiologist. She was noted to have left common iliac artery occlusion as well as stenosis of the origin of the celiac and superior mesenteric arteries. Concern for mesenteric vascular disease as her etiology for her symptoms arose. Vascular surgery was counseled for further evaluation. Upon interviewing the patient, she now states that her symptoms have localized to the right lower quadrant. She denies any signs or symptoms of intestinal angina or food aversion. She denies any recent unexpected weight loss. She denies disabling claudication, rest pain, ulceration or gangrene. She denies chest pain or shortness of breath. Past Med Surg Social Fam HX - Past Medical History Medical history: coronary artery disease, hypertension, other Additional medical history: brain bleed Psychiatric history: no psych history - Past Surgical History Surgical History: coronary bypass (CABG) Additional surgical history: Brain/surgery for blood flow - Social History Smoking Status: Never smoker Smokeless Tobacco Status: No Alcohol use: none Drug use: none - Family History Mother Living Status: Hx Family Endocrine Disorder: Yes (Hypertension) Father Living Status: Hx Family Endocrine Disorder: Yes (Hypertension) Medications and Allergies Atenolol [Tenormin] 50 mg PO HS 03/11/18 [History] Biotin 800 mcg PO DAILY 03/11/18 [History] Cholecalciferol (D-3) [Vitamin D] 3,000 unit PO DAILY 03/11/18 [History] CloNIDine Patch [Catapres-Tts] 0.1 mg TD QWEEK 03/11/18 [History] Cyanocobalamin (Vitamin B-12) [Vitamin B12] 1,000 mcg PO DAILY 03/11/18 [History ] Furosemide [Lasix] 20 mg PO DAILY 03/11/18 [History] Magnesium Oxide [Magnesium] 400 mg PO Q48H 03/11/18 [History] Meclizine HCl [Verticalm] 25 mg PO DAILY PRN 03/11/18 [History] Ondansetron HCl [Zofran] 4 mg PO DAILY PRN 03/11/18 [History] Patiromer Calcium Sorbitex [Veltassa] 8.4 gm PO Q48H 03/11/18 [History] Promethazine [Phenergan] 12.5 mg PO DAILY PRN 03/11/18 [History] Rosuvastatin [Crestor] 20 mg PO HS 03/11/18 [History] Spironolactone [Aldactone] 100 mg PO DAILY 03/11/18 [History] Turmeric Root Extract [Turmeric] 500 mg PO DAILY 03/11/18 [History] Ubidecarenone [Coq10] 200 mg PO DAILY 03/11/18 [History] Vitamin B Complex [B Complex] 1 tab PO DAILY 03/11/18 [History] diazePAM [Valium] 5 mg PO BID PRN 03/11/18 [History] predniSONE [PredniSONE] 2 mg PO DAILY 03/11/18 [History] Aspirin 325 mg PO BID 03/12/18 [History] Ciprofloxacin [Cipro] 500 mg PO BID #10 tablet 03/13/18 [Rx] HYDROcodone/Acet 10/325 mg [[place] 10-325 mg] 1 tab PO Q6HR PRN 4 Days #16 tablet 03/13/18 [Rx] metroNIDAZOLE [Flagyl] 500 mg PO TID #15 tablet 03/13/18 [Rx] 3 Allergy/AdvReac Type Severity Reaction Status Date / Time latex Allergy Rash Verified 03/12/18 10:59 codeine AdvReac Nausea Verified 03/12/18 10:59 morphine AdvReac See Verified 03/12/18 10:59 Comments Tetracycline AdvReac See Verified 03/12/18 10:59 Comments All Systems Review: The remainder of the systems were reviewed and are negative - Constitutional Constitutional: no chills, no fever(s) - Cardiovascular Cardiovascular: no chest pain at rest, no dyspnea on exertion - Gastrointestinal Gastrointestinal: abdominal pain, no constipation, no diarrhea Exam Vital Signs, Last 4 Hours Temp Pulse Resp BP Pulse Ox 03/12/18 06:56 98.5 F 84 16 151/74 94 03/12/18 05:10 98.3 F 81 16 159/77 93 General: Present: Conversant, No Apparent Distress HEENT: Present: Pupils equal Neck: Absent: JVD, Left Carotid bruit, Right Carotid bruit Cardiac: Present: Reg Rate and Rhythm, Normal S1 and S2 Lungs: Present: Normal Breath Sounds, No Wheeze, Rales, Rhonchi Neuro: Present: Alert and responsive, Motor nerves grossly intact, Sensory nerves grossly intact Abdomen: Present: Other (Right lower quadrant tenderness, bowel sounds present, voluntary guarding at the right lower quadrant) Vascular: Present: Normal capillary refill, Pulse, absent (Bilateral pedal pulses are absent) Skin: Present: No rashes noted on visualized skin Musculoskeletal: Present: No Chest Wall Tenderness Consult Discharge Plan - Plan Instructions: Laparoscopic Appendectomy (DC) Additional Instructions: 1. No pushing, pulling, or lifting greater than 15 lbs for 2-4 weeks (depending upon procedure). 2. You may shower beginning today, but no tub baths, soaking, or swimming for 2 weeks. 3. You may resume driving when you are off narcotics and are safe to react in a car. 4. Take ibuprofen every 8 hours for discomfort. 5. Take stool softeners (Colace) or a water based laxative (Miralax) while taking narcotics. You may hold for loose stools. 6. Report any fevers greater than 100.5F, increase abdominal discomfort, drainage that looks like pus, increased redness or pain at the surgical site, or any vomiting. 7. Report any pain in the calves, shortness of breath, or rapid heartbeat. 8. Follow-up in the office as directed. Referrals: Corine Almanzar CNP [Advanced Practice Nurse] - 03/26/18 1:00 pm Prescriptions: HYDROcodone/Acet 10/325 mg [[place] 10-325 mg] 1 tab PO Q6HR PRN 4 Days #16 tablet PRN Reason: Pain Ciprofloxacin [Cipro] 500 mg PO BID #10 tablet metroNIDAZOLE [Flagyl] 500 mg PO TID #15 tablet
[2018-03-12] MEDS ORDERED: Magnesium Oxide 400 MG TABLET PO SCH (09:00)
[2018-03-12] MEDS ORDERED: Cholecalciferol (D-3) 1,000 UNIT TABLET PO SCH (09:00)
[2018-03-12] MEDS ORDERED: Furosemide 20 MG TABLET PO SCH (09:00)
[2018-03-12] MEDS ORDERED: Aspirin Enteric Coated 325 MG Tablet PO SCH (09:00)
[2018-03-12] MEDS ORDERED: predniSONE 1 MG TABLET PO SCH (09:00)
[2018-03-12] MEDS ORDERED: diazePAM 5 MG TABLET PO SCH (09:00)
[2018-03-12] MEDS ORDERED: BIOTIN 800 MCG PO SCH (09:00)
[2018-03-12] MEDS ORDERED: Cyanocobalamin (B-12) 1,000 MCG TABLET PO SCH (09:00)
[2018-03-12] MEDS ORDERED: diazePAM 5 MG TABLET PO PRN ×2 (10:30→20:45)
--- NOTE | 2018-03-12 10:45 | Internal Med Progress Note ---
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 Cardiovascular:Normal S1 & S2, No JVD. Pulse regular. Lungs: clear to auscultation, no wheezes/rales Abdomen:Soft, non-tender at this time (patient just received Fentanly). No rebound/rigidity. Extremities:No deformity or swelling Neurological:Normal cognition and motor skills. Non-focal Skin:Normal color, no rash, no lesions. Pulses:Carotid and radial pulses normal +2. Rest of the physical exam is non contributory - Assessment and Plan (1) Hypertension Current Visit: Yes Status: Chronic Assessment and Plan: On Aldactone, clonidine patch, and atenolol Continue home meds (2) CAD (coronary artery disease) Current Visit: Yes Status: Chronic Assessment and Plan: Continue home meds (3) Atrial fibrillation Current Visit: Yes Status: Chronic Assessment and Plan: Not on anticoagulation due to history of hemorrhagic stroke as the risk of arterial embolism is high no evidence of embolus on CTA however Continue atenolol Continue 650mg daily ASA Continue to monitor on tele (4) DVT prophylaxis Current Visit: Yes Status: Acute Assessment and Plan: History of hemorrhagic stroke, not on anticoagulation for A. fib as well SCD (5) Acute appendicitis Current Visit: Yes Status: Acute Assessment and Plan: management per surgery For lap appendectomy today - Time Spent with Patient Total time spent is greater than 50% in coordination of care (as documented) at patient's floor/unit and/or counseling patient: Plan of Care Discussed with: patient Internal Medicine: Result - Labs CBC & Chem 7: 03/12/18 01:37 03/12/18 01:37 Labs: Short CBC 03/12/18 Range/Units 01:37 WBC 19.0 H (4.3-11.1) K/mcL Hgb 15.1 (11.5-15.4) g/dL Hct 45.6 H (35.3-44.9) % Plt Count 241 (140-400) K/mcL Neutrophils # 17.1 H (1.6-8.9) K/mcL BMP 03/12/18 01:37 Sodium 135 L Potassium 3.8 Chloride 94 L Carbon Dioxide 32 H BUN 21 Creatinine 0.88 Glucose 159 H Calcium 10.4 H Cardiac Enzymes 03/12/18 Range/Units 01:37 Troponin I < 0.03 (< 0.04) ng/mL - ABG Interpretation ABG results: PT/INR, D-dimer PT 11.8 Seconds (9.4-12.1) 03/11/18 19:43 - VTE Documentation of Mechanical Device: Intermittent pneumatic compression device Consult Discharge Plan - Plan Referrals: Leonardo Romero MD [Primary Care Provider] - (1) Hypertension Qualifiers: Hypertension type: essential hypertension Qualified Code(s): I10 - Essential (primary) hypertension (2) CAD (coronary artery disease) Qualifiers: Coronary Disease-Associated Artery/Lesion type: unspecified vessel or lesion type [place] vs. transplanted heart: [place] heart Associated angina: angina presence unspecified Qualified Code(s): I25.10 - Atherosclerotic heart disease of [place] coronary artery without angina pectoris (3) Atrial fibrillation Qualifiers: Atrial fibrillation type: unspecified Qualified Code(s): I48.91 - Unspecified atrial fibrillation (5) Acute appendicitis Qualifiers: Qualified Code(s): K35.80 - Unspecified acute appendicitis
[2018-03-12] MEDS ORDERED: *HR* FentaNYL (PF) 100 MCG/2 ML VIAL IVP PRN ×2 (11:51→19:44)
--- NOTE | 2018-03-12 17:51 | Electrocardiograph Report ---
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
--- NOTE | 2018-03-12 17:55 | Electrocardiograph Report ---
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
[2018-03-12] MEDS ORDERED: CefOXitin 1,000 MG VIAL ONE (18:14)
--- NOTE | 2018-03-12 18:16 | Anesthesia Evaluation PreOp ---
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), Other (chronic back pain) Other Medical History: Other (fibromyalgia) Anesthesia History: No Prior Anesthetic Complications, Past Anesthesia Alcohol Use: occasionally Drug use: none Medications and Allergies Atenolol [Tenormin] 50 mg PO HS 03/11/18 [History] Biotin 800 mcg PO DAILY 03/11/18 [History] Cholecalciferol (D-3) [Vitamin D] 3,000 unit PO DAILY 03/11/18 [History] CloNIDine Patch [Catapres-Tts] 0.1 mg TD QWEEK 03/11/18 [History] Cyanocobalamin (Vitamin B-12) [Vitamin B12] 1,000 mcg PO DAILY 03/11/18 [History ] Furosemide [Lasix] 20 mg PO DAILY 03/11/18 [History] HYDROcodone/Acet 10/325 mg [[place] 10-325 mg] 1 tab PO Q6HR PRN 03/11/18 [History ] Magnesium Oxide [Magnesium] 400 mg PO Q48H 03/11/18 [History] Meclizine HCl [Verticalm] 25 mg PO DAILY PRN 03/11/18 [History] Ondansetron HCl [Zofran] 4 mg PO DAILY PRN 03/11/18 [History] Patiromer Calcium Sorbitex [Veltassa] 8.4 gm PO Q48H 03/11/18 [History] Promethazine [Phenergan] 12.5 mg PO DAILY PRN 03/11/18 [History] Rosuvastatin [Crestor] 20 mg PO HS 03/11/18 [History] Spironolactone [Aldactone] 100 mg PO DAILY 03/11/18 [History] Turmeric Root Extract [Turmeric] 500 mg PO DAILY 03/11/18 [History] Ubidecarenone [Coq10] 200 mg PO DAILY 03/11/18 [History] Vitamin B Complex [B Complex] 1 tab PO DAILY 03/11/18 [History] diazePAM [Valium] 5 mg PO BID PRN 03/11/18 [History] predniSONE [PredniSONE] 2 mg PO DAILY 03/11/18 [History] Aspirin 325 mg PO BID 03/12/18 [History] 3 Allergy/AdvReac Type Severity Reaction Status Date / Time latex Allergy Rash Verified 03/12/18 10:59 codeine AdvReac Nausea Verified 03/12/18 10:59 morphine AdvReac See Verified 03/12/18 10:59 Comments Tetracycline AdvReac See Verified 03/12/18 10:59 Comments - Meds/Allergy Pre-op Review Medications Reviewed: Yes Allergies Reviewed: Yes Beta Blockers on Current Med List: Yes If Beta Blockers taken, Date/Time (Last Dose taken): 03/12/2018 at 1513 Anesthesia Results - Labs 03/12/18 01:37 03/12/18 01:37 - Imaging EKG: report reviewed (03/12/2018 SINUS RHYTHM LEFT ATRIAL ENLARGEMENT ST DEVIATION AND MODERATE T-WAVE ABNORMALITY, CONSIDER LATERAL ISCHEMIA) Additional studies: 05/19/2015 Echo LVEF 60-65% normal LV systolic function mild LV diastolic dysfunction mildly dilated LA mild AR no evidence of pulmonary HTN Anesthesia Exam Vital Signs/O2 Sat/Glucose, Most Recent Temp Pulse Resp BP Pulse Ox 98.4 F 72 14 107/69 93 03/12/18 14:24 03/12/18 14:24 03/12/18 14:24 03/12/18 14:24 03/12/18 14:24 Blood Glucose* 91 Height: 5'4''/1.63m Weight: 164 lbs/74.8 kg NPO (# of Hours): 8 Pain Scale: 4 Pain Scale Used: Numeric (1 - 10) - HEENT Pupil (Motor): EOMI Mallampati: II Teeth: Normal, Prosthesis Denture Type: Upper: Complete Oral Opening: Greater than 3 - DEBONING TEAM LEADER LOC: Oriented DEBONING TEAM LEADER Motor: Normal RUE, Normal LUE, Normal RLE, Normal LLE, Normal Face DEBONING TEAM LEADER Sensory: Normal: RUE, LUE, Deficit: RLE (numbness), LLE (numbness), Face ( left eye complete blindness) - Cardiac Rhythm: Regular Murmur: None - Pulmonary Breath Sounds: bilateral Clear Respiratory Effort: Symmetrical Anesthesia Assess/Plan ASA Score: 3 Modified White Scale for Level of Consciousness: Cooperative, oriented, and tranquil Anesthetic Plan: General Monitoring Plan: Standard Monitors Recovery Plan: PACU
[2018-03-12] MEDS ORDERED: *HR* Rocuronium Bromide 50 MG/5 ML VIAL ONE (18:45)
[2018-03-12] MEDS ORDERED: *HR* FentaNYL (PF) 100 MCG/2 ML VIAL ONE ×2 (18:45→18:52)
[2018-03-12] MEDS ORDERED: Dexamethasone 4 MG/ML VIAL ONE (18:45)
[2018-03-12] MEDS ORDERED: Lidocaine -MPF 2% 2 ML VIAL ONE (18:45)
[2018-03-12] MEDS ORDERED: *HR* Succinylcholine 200 MG/10 ML VIAL IVP ONE (18:45)
[2018-03-12] MEDS ORDERED: Ondansetron 4 MG/2 ML VIAL ONE (18:45)
[2018-03-12] MEDS ORDERED: *HR* Propofol 200 MG/20 ML VIAL IVP ONE (18:45)
[2018-03-12] MEDS ORDERED: EPHEDrine 50 MG/ML VIAL ONE (19:22)
[2018-03-12] MEDS ORDERED: Ketorolac 30 MG/ML VIAL IVP ONE (19:44)
[2018-03-12] MEDS ORDERED: Ondansetron 4 MG/2 ML VIAL IVP ONE (19:44)
[2018-03-12] MEDS ORDERED: *HR* Midazolam HCl 2 MG/2 ML VIAL IVP PRN (19:44)
[2018-03-12] MEDS ORDERED: *HR* Promethazine 25 MG/ML VIAL IVP PRN (19:44)
[2018-03-12] MEDS ORDERED: Neostigmine Methylsulfate 3 MG/3 ML SYRINGE ONE (20:02)
[2018-03-12] MEDS ORDERED: Naloxone 0.4 MG/ML INJ ONE (20:03)
--- NOTE | 2018-03-12 20:04 | Operative Note ---
Date of procedure: 03/12/18 Pre-op diagnosis: Appendicitis Post-op diagnosis: same Procedure: Laparoscopic appendectomy Anesthesia: CIERA Surgeon: Leeroy Nielsen Was there an construction assistant present: No Estimated blood loss (cc): 10 Specimen: Appendix Condition: stable Disposition: PACU Procedure in Detail: After informed consent patient was taken major operative suite placed in supine position given general endotracheal anesthesia. The abdomen was prepped and draped in sterile fashion utilizing ChloraPrep standard draping techniques. Timeout was taken patient was identified. Made a vertical midline incision below the umbilicus and dissected down to level of fascia. Two 0 Vicryl stitches w laparoscopic stapling device ere placed in the fascia. The abdomen was entered visually. I placed a Real trocar and insufflated the abdomen to 15 mmHg pressure CO2. The appendix was located in the exact location predicted by CAT scan in the right midabdomen on the anterior abdominal wall. I placed a 5 mm trocar in the suprapubic area and a 12 trocar right upper quadrant. I dissected the window between the appendix and the mesial appendix and the base of the appendix was divided with a gastrointestinal load on the laparoscopic stapling device. The mesoappendix was divided with a vascular on the laparoscopic stapling device. Both staple lines were intact. There was no bleeding. I irrigated with copious amounts of antibiotic containing solution. The appendix was covered in pus but not perforated. Class 4 wound. All trochars were removed. Fascia was closed with 2-0 Vicryl. Skin was closed with 2-0 Vicryl and 4-0 Vicryl. The patient tolerated the procedure well.
--- NOTE | 2018-03-12 20:38 | Anesthesia Evaluation Post Op ---
Date of Encounter: 03/12/18 Time of Encounter: 20:37 - Vital Signs Vital Signs: Vital Signs/O2 Sat, Most Current Temp Pulse Resp BP Pulse Ox 98.8 F 78 16 133/66 100 03/12/18 20:31 03/12/18 20:31 03/12/18 20:31 03/12/18 20:31 03/12/18 20:31 - Lungs Lungs: Clear Ascult./Percussion - Airway Airway: Non-obstructed - Cardiovascular Regular Rate - Mental Status Mental Status: Alert & Oriented, Answers Appropriately - Pain Pain Scale: 0 Pain Scale used: Numeric (1 - 10) - Nausea Vomiting Nausea Vomiting: Not Present - Hydration Hydration: Tolerates oral liquids, Has not voided - Discharge PostOp Status: Transfer Patient to floor
[2018-03-12] MEDS ORDERED: OXYCODONE Oral CONC 10 MG/0.5 ML ORAL.SYG SL PRN (20:45)
[2018-03-12] MEDS ORDERED: Ondansetron 4 MG/2 ML VIAL IVP PRN (20:45)
[2018-03-12] MEDS ORDERED: *HR* Labetalol 20 MG/4 ML SYRINGE IVP PRN (20:45)
[2018-03-12] MEDS ORDERED: CloNIDine Patch 0.1 MG PATCH (WEEKLY) TD SCH (20:45)
[2018-03-12] MEDS ORDERED: Naloxone 0.4 MG/ML INJ IVP PRN (20:45)
[2018-03-13 06:39] LABS: Basophils % 0.1 %; Hematocrit 39.7 % (35.3-44.9); Immature Granulocytes % 0.2 % (0-4); Lymphocytes # 0.7 K/mcL (0.6-4.6); Lymphocytes % 8.9 %; Mean Corpuscular HGB Conc 32.7 g/dL (31.6-35.5); Mean Corpuscular Hemoglobin 32.3 pg (28.0-33.3); Mean Corpuscular Volume 98.8 fL (83.0-100.0); Mean Platelet Volume 11.3 fL (9.4-12.4); Monocytes # 0.4 K/mcL (0.0-1.3); Platelet Count 195 K/mcL (140-400); Red Blood Count 4.02 M/mcL (3.82-4.97); Red Cell Distribution Width 13.1 % (11.5-14.5); Segmented Neutrophils % 85.8 %
[2018-03-13 07:01] LABS: BUN/Creatinine Ratio 18 (6-26); Blood Urea Nitrogen 12 mg/dL (8-23); Calcium 9.6 mg/dL (8.6-10.3); Carbon Dioxide 29 mEq/L (23-29); Chloride 102 mEq/L (98-107); Glucose 148 mg/dL (70-105); Osmolality,Calculated 287 (280-300); Potassium 4.5 mEq/L (3.5-5.1); Sodium 137 mEq/L (136-145); eGFR For Non-African Americans > 60 (> 60)
[2018-03-13] MEDS ORDERED: Piperacillin/Tazobactam 3.375 GM in 0.9 % Sodium Chloride Mini Bag 100 ML IVPB SCH (08:00)
[2018-03-13] MEDS: OXYCODONE Oral CONC 10 MG/0.5 ML ORAL.SYG SL PRN ×2 (08:42→13:17)
[2018-03-13] MEDS ORDERED: Cyanocobalamin (B-12) 1,000 MCG TABLET PO SCH (09:00)
[2018-03-13] MEDS ORDERED: Magnesium Oxide 400 MG TABLET PO SCH (09:00)
[2018-03-13] MEDS ORDERED: Furosemide 20 MG TABLET PO SCH (09:00)
[2018-03-13] MEDS ORDERED: Aspirin Enteric Coated 325 MG Tablet PO SCH (09:00)
[2018-03-13] MEDS ORDERED: Cholecalciferol (D-3) 1,000 UNIT TABLET PO SCH (09:00)
[2018-03-13] MEDS ORDERED: predniSONE 1 MG TABLET PO SCH (09:00)
--- NOTE | 2018-03-13 10:09 | Discharge Summary ---
Orders not resulted at time of discharge: Pending orders 03/12/18 19:46 Surgical Pathology [PTH] Routine Date of Encounter: 03/13/18 - Discharge Diagnosis (1) Acute appendicitis Status: Acute Qualifiers: Qualified Code(s): K35.80 - Unspecified acute appendicitis General Surgery Exam Initial Vital Signs Temp Pulse Resp BP Pulse Ox 97.8 F 73 18 211/81 95 03/11/18 20:50 03/11/18 20:50 03/11/18 20:50 03/11/18 20:50 03/11/18 20:50 - General physical appearance well developed, well nourished, moderate distress - Respiratory normal expansion, normal respiratory effort, clear to auscultation - Cardiovascular Cardiovascular exam: Present: RRR, no murmurs/rubs/gallops - Abdomen Abdomen general surgery: Present: bowel sounds present, soft, tender Abdominal Tenderness: Present: RLQ - Incision Incision: Present: clean and dry, intact - Musculoskeletal Present: normal posture - Psychiatric Psychiatric general surgery: Present: oriented to person, oriented to place, oriented to time, other (Very concerned for multiple things including home medications, timing of medications, blood clots, ability to get up and walk.) - Hospital Course Hospital course: Ms. Mendez is a 77 year old female - Time Spent with Patient Total time spent providing and/or coordinating discharge services: - Discharge Medications Home Medications: Atenolol [Tenormin] 50 mg PO HS 03/11/18 [History] Biotin 800 mcg PO DAILY 03/11/18 [History] Cholecalciferol (D-3) [Vitamin D] 3,000 unit PO DAILY 03/11/18 [History] CloNIDine Patch [Catapres-Tts] 0.1 mg TD QWEEK 03/11/18 [History] Cyanocobalamin (Vitamin B-12) [Vitamin B12] 1,000 mcg PO DAILY 03/11/18 [History ] Furosemide [Lasix] 20 mg PO DAILY 03/11/18 [History] HYDROcodone/Acet 10/325 mg [[place] 10-325 mg] 1 tab PO Q6HR PRN 03/11/18 [History ] Magnesium Oxide [Magnesium] 400 mg PO Q48H 03/11/18 [History] Meclizine HCl [Verticalm] 25 mg PO DAILY PRN 03/11/18 [History] Ondansetron HCl [Zofran] 4 mg PO DAILY PRN 03/11/18 [History] Patiromer Calcium Sorbitex [Veltassa] 8.4 gm PO Q48H 03/11/18 [History] Promethazine [Phenergan] 12.5 mg PO DAILY PRN 03/11/18 [History] Rosuvastatin [Crestor] 20 mg PO HS 03/11/18 [History] Spironolactone [Aldactone] 100 mg PO DAILY 03/11/18 [History] Turmeric Root Extract [Turmeric] 500 mg PO DAILY 03/11/18 [History] Ubidecarenone [Coq10] 200 mg PO DAILY 03/11/18 [History] Vitamin B Complex [B Complex] 1 tab PO DAILY 03/11/18 [History] diazePAM [Valium] 5 mg PO BID PRN 03/11/18 [History] predniSONE [PredniSONE] 2 mg PO DAILY 03/11/18 [History] Aspirin 325 mg PO BID 03/12/18 [History] Allergies/Adverse Reactions: 3 Allergy/AdvReac Type Severity Reaction Status Date / Time latex Allergy Rash Verified 03/12/18 10:59 codeine AdvReac Nausea Verified 03/12/18 10:59 morphine AdvReac See Verified 03/12/18 10:59 Comments Tetracycline AdvReac See Verified 03/12/18 10:59 Comments Date of admission: 03/11/18 21:19 Primary care physician: Leonardo Romero MD Consults: 03/11/18 21:25 Consult to Vascular Surgery [CONS] Stat Consulting Provider: Vascular Surgery [place] Reason for Consult: PVD Time Notified: 21:25 Call Completed: Yes 03/11/18 21:50 Consult to Surgery [CONS] Routine Consulting Provider: [facility] Reason for Consult: abdominal pain ?early appendicitis. Consult called from ED overnight Call Completed: Yes Labs on day of discharge: Labs from last 24 hours 03/13/18 03/13/18 03/12/18 06:05 06:05 11:23 WBC 8.2 D RBC 4.02 Hgb 13.0 D Hct 39.7 MCV 98.8 MCH 32.3 MCHC 32.7 RDW 13.1 Plt Count 195 MPV 11.3 Immature Gran % 0.2 Seg Neutrophils % 85.8 Lymphocytes % 8.9 Monocytes % 5.0 Eosinophils % 0.0 Basophils % 0.1 Neutrophils # 7.0 Lymphocytes # 0.7 Monocytes # 0.4 Eosinophils # 0.0 Basophils # 0.0 Sodium 137 Potassium 4.5 Chloride 102 Carbon Dioxide 29 BUN 12 Creatinine 0.65 Est GFR ( Amer) > 60 Est GFR (Non-Af Amer) > 60 BUN/Creatinine Ratio 18 Glucose 148 H POC Glucose 95 Calculated Osmolality 287 Calcium 9.6 - Patient Status Disposition: Home, Self-Care Condition: Good Overall status at discharge: patient is progressing back to baseline - Discharge Instructions Instructions: Laparoscopic Appendectomy (DC) Follow Up With: Leonardo Romero MD [Primary Care Provider] - Additional Instructions: 1. No pushing, pulling, or lifting greater than 15 lbs for 2-4 weeks (depending upon procedure). 2. You may shower beginning today, but no tub baths, soaking, or swimming for 2 weeks. 3. You may resume driving when you are off narcotics and are safe to react in a car. 4. Take ibuprofen every 8 hours for discomfort. If this does not relieve discomfort, you may take the as needed Percocet. Take narcotics as directed. Do not take more narcotics then directed and do not share your narcotics with any other person. Do not drink alcohol while on narcotics. 5. Take stool softeners (Colace) or a water based laxative (Miralax) while taking narcotics. You may hold for loose stools. 6. Report any fevers greater than 100.5F, increase abdominal discomfort, drainage that looks like pus, increased redness or pain at the surgical site, or any vomiting. 7. Report any pain in the calves, shortness of breath, or rapid heartbeat. 8. Follow-up in the office as directed. - Diet and Activity Activity: other (Ambulate using her cane)
[2018-03-13 10:13] VITALS: BP 94/59
--- NOTE | 2018-03-13 10:16 | General Surgery Progress Note ---
<Ana Cristina Scales E - Last Filed: 03/13/18 10:13> Date of Encounter: 03/13/18 Time of Encounter: 10:13 - Assessment and Plan (1) Acute appendicitis Status: Acute Continue pain medication as per primary IV fluids as per primary Supportive care Ambulate 3 times a day with assistance If patient tolerates breakfast and lunch today, surgery feels that she can be discharged. Qualifiers: Qualified Code(s): K35.80 - Unspecified acute appendicitis Subjective Patient reports: feels better, still having pain, no flatus, no bowel movement, other (Patient is feeling a bit better today, pain is little bit less. She has not had a bowel movement or passed gas since surgery. She is very concerned about timing of her medications.) Objective Vital Signs - Last 8 Hours Temp Pulse Resp BP Pulse Ox 03/13/18 10:09 98.2 F 67 16 94/59 95 03/13/18 08:43 91 03/13/18 06:21 98.1 F 58 16 154/84 91 03/13/18 04:05 97.6 F 82 16 135/80 95 Intake and Output 03/12/18 03/13/18 03/13/18 23:59 07:59 15:59 Intake Total 120 / 120 Output Total 500 / 500 250 / 250 Balance -10 / -10 -380 / -380 -250 / -250 Intake: Oral 120 / 120 Output: Urine 500 / 500 250 / 250 Estimated Blood Loss Other: Meal NPO # Voids 1 # Bowel Movements 0 0 Weight 75 kg Blood Glucose* 91 Patient Weight 03/13/18 23:59 Weight 75 kg - General physical appearance well developed, well nourished, moderate distress - Respiratory normal expansion, normal respiratory effort, clear to auscultation - Cardiovascular Cardiovascular exam: Present: RRR, no murmurs/rubs/gallops - Abdomen Abdomen: Present: bowel sounds present, soft, tender Abdominal Tenderness: RLQ (So than yesterday) - Incision Incision: Present: draining, intact - Integumentary no rash, no growths, no abnormal pigmentation - Musculoskeletal normal posture - Psychiatric oriented to time, oriented to person, oriented to place, other (Patient is very anxious about her care.) - Labs 03/13/18 06:05 03/13/18 06:05 Diabetes panel 03/13/18 Range/Units 06:05 Sodium 137 (136-145) mEq/L Potassium 4.5 (3.5-5.1) mEq/L Chloride 102 (98-107) mEq/L Carbon Dioxide 29 (23-29) mEq/L BUN 12 (8-23) mg/dL Creatinine 0.65 (0.60-1.20) mg/dL Glucose 148 H (70-105) mg/dL Calcium 9.6 (8.6-10.3) mg/dL Calcium panel 03/13/18 Range/Units 06:05 Calcium 9.6 (8.6-10.3) mg/dL Pituitary panel 03/13/18 Range/Units 06:05 Sodium 137 (136-145) mEq/L Potassium 4.5 (3.5-5.1) mEq/L Chloride 102 (98-107) mEq/L Carbon Dioxide 29 (23-29) mEq/L BUN 12 (8-23) mg/dL Creatinine 0.65 (0.60-1.20) mg/dL Glucose 148 H (70-105) mg/dL Calcium 9.6 (8.6-10.3) mg/dL Adrenal panel 03/13/18 Range/Units 06:05 Sodium 137 (136-145) mEq/L Potassium 4.5 (3.5-5.1) mEq/L Chloride 102 (98-107) mEq/L Carbon Dioxide 29 (23-29) mEq/L BUN 12 (8-23) mg/dL Creatinine 0.65 (0.60-1.20) mg/dL Glucose 148 H (70-105) mg/dL Calcium 9.6 (8.6-10.3) mg/dL - VTE Documentation of Mechanical Device: Intermittent pneumatic compression device Consult Discharge Plan - Plan Instructions: Laparoscopic Appendectomy (DC) Additional Instructions: 1. No pushing, pulling, or lifting greater than 15 lbs for 2-4 weeks (depending upon procedure). 2. You may shower beginning today, but no tub baths, soaking, or swimming for 2 weeks. 3. You may resume driving when you are off narcotics and are safe to react in a car. 4. Take ibuprofen every 8 hours for discomfort. 5. Take stool softeners (Colace) or a water based laxative (Miralax) while taking narcotics. You may hold for loose stools. 6. Report any fevers greater than 100.5F, increase abdominal discomfort, drainage that looks like pus, increased redness or pain at the surgical site, or any vomiting. 7. Report any pain in the calves, shortness of breath, or rapid heartbeat. 8. Follow-up in the office as directed. Referrals: Corine Almanzar [employer] INSPECTOR [Advanced Practice Nurse] - 03/26/18 1:00 pm Prescriptions: HYDROcodone/Acet 10/325 mg [[place] 10-325 mg] 1 tab PO Q6HR PRN 4 Days #16 tablet PRN Reason: Pain Ciprofloxacin [Cipro] 500 mg PO BID #10 tablet metroNIDAZOLE [Flagyl] 500 mg PO TID #15 tablet <Leeroy Nielsen - Last Filed: 03/13/18 15:20> Date of Encounter: 03/13/18 Objective Vital Signs - Last 8 Hours Temp Pulse Resp BP Pulse Ox 03/13/18 10:09 98.2 F 67 16 94/59 95 03/13/18 08:43 91 Intake and Output 03/12/18 03/13/18 03/13/18 23:59 07:59 15:59 Intake Total 120 / 120 220 / 220 Output Total 500 / 500 250 / 250 Balance -10 / -10 -380 / -380 -30 / -30 Intake: Oral 120 / 120 220 / 220 Output: Urine 500 / 500 250 / 250 Estimated Blood Loss Other: Meal NPO Lunch Percent of Meal Consumed 90% # Voids 1 # Bowel Movements 0 0 Weight 75 kg Blood Glucose* 91 Patient Weight 03/13/18 23:59 Weight 75 kg - Labs 03/13/18 06:05 03/13/18 06:05 Diabetes panel 03/13/18 Range/Units 06:05 Sodium 137 (136-145) mEq/L Potassium 4.5 (3.5-5.1) mEq/L Chloride 102 (98-107) mEq/L Carbon Dioxide 29 (23-29) mEq/L BUN 12 (8-23) mg/dL Creatinine 0.65 (0.60-1.20) mg/dL Glucose 148 H (70-105) mg/dL Calcium 9.6 (8.6-10.3) mg/dL Calcium panel 03/13/18 Range/Units 06:05 Calcium 9.6 (8.6-10.3) mg/dL Pituitary panel 03/13/18 Range/Units 06:05 Sodium 137 (136-145) mEq/L Potassium 4.5 (3.5-5.1) mEq/L Chloride 102 (98-107) mEq/L Carbon Dioxide 29 (23-29) mEq/L BUN 12 (8-23) mg/dL Creatinine 0.65 (0.60-1.20) mg/dL Glucose 148 H (70-105) mg/dL Calcium 9.6 (8.6-10.3) mg/dL Adrenal panel 03/13/18 Range/Units 06:05 Sodium 137 (136-145) mEq/L Potassium 4.5 (3.5-5.1) mEq/L Chloride 102 (98-107) mEq/L Carbon Dioxide 29 (23-29) mEq/L BUN 12 (8-23) mg/dL Creatinine 0.65 (0.60-1.20) mg/dL Glucose 148 H (70-105) mg/dL Calcium 9.6 (8.6-10.3) mg/dL - Attending Attestation I examined this patient and my medical decision-making was reviewed with the Resident Physician. I agree with the documented findings, disposition and treatment plan as described except to the extent set forth below. The patient is seen and evaluated on morning rounds with resident. She is doing quite well after laroscopic appendectomy. White blood cell count has returned to normal. She does have incisional pain but her preoperative pain is gone. She should be ready for discharge from our standpoint. Postoperative hypertension has been an issue. Discharge when cleared by hospitalist service. Leeroy Nielsen MD FACS
[2018-03-13] MEDS ORDERED: metroNIDAZOLE 500 MG TABLET PO SCH (10:45)
--- NOTE | 2018-03-13 12:45 | Discharge Summary ---
- NOTES TO OUTPATIENT PROVIDER Notes to Outpatient Provider: Placed on observation for acute appendicitis. Status post laparoscopic appendectomy 03/12. Discharged home with oral antibiotics. Chronic medical conditions remained stable. Orders not resulted at time of discharge: Pending orders 03/12/18 19:46 Surgical Pathology [PTH] Routine Date of Encounter: 03/13/18 Time of Encounter: 12:43 - Discharge Diagnosis (1) Acute appendicitis Priority: Primary Status: Acute Qualifiers: Qualified Code(s): K35.80 - Unspecified acute appendicitis (2) Hypertension Priority: Secondary Status: Chronic Qualifiers: Hypertension type: essential hypertension Qualified Code(s): I10 - Essential (primary) hypertension (3) CAD (coronary artery disease) Priority: Secondary Status: Chronic Qualifiers: Coronary Disease-Associated Artery/Lesion type: unspecified vessel or lesion type [place] vs. transplanted heart: [place] heart Associated angina: angina presence unspecified Qualified Code(s): I25.10 - Atherosclerotic heart disease of [place] coronary artery without angina pectoris (4) Atrial fibrillation Priority: Secondary Status: Chronic Qualifiers: Atrial fibrillation type: unspecified Qualified Code(s): I48.91 - Unspecified atrial fibrillation (5) DVT prophylaxis Priority: Primary Status: Acute Hospital course: Ms. 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 She had surgery done 03/12 p.m. with evidence of possible around her appendix. She is not septic. She is seen and evaluated at the bedside this morning, she endorses adequate control, she has no new complaints medically. Her chronic medical conditions are stable. According to surgery, patient can be discharged home after breakfast and lunch. She agrees with plan. Due to evidence of pus around the appendix, surgery recommended antibiotics. She is discharged home on 5 more days of oral antibiotics and pain control. Follow-up with primary care physician and surgery Discharge discussed with: patient, nurse, etl consultant - Time Spent with Patient Total time spent providing and/or coordinating discharge services: Greater than 30 minutes - Discharge Medications Prescriptions: HYDROcodone/Acet 10/325 mg [[place] 10-325 mg] 1 tab PO Q6HR PRN 4 Days #16 tablet PRN Reason: Pain Ciprofloxacin [Cipro] 500 mg PO BID #10 tablet metroNIDAZOLE [Flagyl] 500 mg PO TID #15 tablet Home Medications: Atenolol [Tenormin] 50 mg PO HS 03/11/18 [History] Biotin 800 mcg PO DAILY 03/11/18 [History] Cholecalciferol (D-3) [Vitamin D] 3,000 unit PO DAILY 03/11/18 [History] CloNIDine Patch [Catapres-Tts] 0.1 mg TD QWEEK 03/11/18 [History] Cyanocobalamin (Vitamin B-12) [Vitamin B12] 1,000 mcg PO DAILY 03/11/18 [History ] Furosemide [Lasix] 20 mg PO DAILY 03/11/18 [History] Magnesium Oxide [Magnesium] 400 mg PO Q48H 03/11/18 [History] Meclizine HCl [Verticalm] 25 mg PO DAILY PRN 03/11/18 [History] Ondansetron HCl [Zofran] 4 mg PO DAILY PRN 03/11/18 [History] Patiromer Calcium Sorbitex [Veltassa] 8.4 gm PO Q48H 03/11/18 [History] Promethazine [Phenergan] 12.5 mg PO DAILY PRN 03/11/18 [History] Rosuvastatin [Crestor] 20 mg PO HS 03/11/18 [History] Spironolactone [Aldactone] 100 mg PO DAILY 03/11/18 [History] Turmeric Root Extract [Turmeric] 500 mg PO DAILY 03/11/18 [History] Ubidecarenone [Coq10] 200 mg PO DAILY 03/11/18 [History] Vitamin B Complex [B Complex] 1 tab PO DAILY 03/11/18 [History] diazePAM [Valium] 5 mg PO BID PRN 03/11/18 [History] predniSONE [PredniSONE] 2 mg PO DAILY 03/11/18 [History] Aspirin 325 mg PO BID 03/12/18 [History] Ciprofloxacin [Cipro] 500 mg PO BID #10 tablet 03/13/18 [Rx] HYDROcodone/Acet 10/325 mg [[place] 10-325 mg] 1 tab PO Q6HR PRN 4 Days #16 tablet 03/13/18 [Rx] metroNIDAZOLE [Flagyl] 500 mg PO TID #15 tablet 03/13/18 [Rx] Allergies/Adverse Reactions: 3 Allergy/AdvReac Type Severity Reaction Status Date / Time latex Allergy Rash Verified 03/12/18 10:59 codeine AdvReac Nausea Verified 03/12/18 10:59 morphine AdvReac See Verified 03/12/18 10:59 Comments Tetracycline AdvReac See Verified 03/12/18 10:59 Comments Date of admission: 03/11/18 21:19 Primary care physician: Leonardo Romero MD Consults: 03/11/18 21:25 Consult to Vascular Surgery [CONS] Stat Consulting Provider: V[facility] Surgery [facility] Reason for Consult: PVD Time Notified: 21:25 Call Completed: Yes 03/11/18 21:50 Consult to Surgery [CONS] Routine Consulting Provider: [facility] Reason for Consult: abdominal pain ?early appendicitis. Consult called from ED overnight Call Completed: Yes Discharging clinician: Cristo Zamarripa Anticipated date of discharge: 03/13/18 - Constitutional Vitals: Temp Pulse Resp BP Pulse Ox 98.2 F 67 16 94/59 95 03/13/18 10:09 03/13/18 10:09 03/13/18 10:09 03/13/18 10:09 03/13/18 10:09 General appearance: Present: A&O X 3, pleasant, no acute distress - Head Head exam: Present: atraumatic, normocephalic - Eye Eye exam: Present: PERRL, conjuntiva pink, sclera anicteric Pupils: Present: PERRL - Neck Neck exam general surgery: Present: supple, trachea midline. Absent: lymphadenopathy - Respiratory Respiratory exam: Present: CTAB. Absent: accessory muscle use, rales, rhonchi, wheezes - Cardiovascular Cardiovascular exam: Present: RRR, +S1, +S2. Absent: diastolic murmur, gallop, rubs, systolic murmur - GI/Abdominal GI/Abdominal exam: Present: normal bowel sounds, soft, no peritoneal signs. Absent: distended, tenderness - Extremities Exam Extremities exam: Present: warm, radial pulses palpable and symmetrical. Absent : calf tenderness, cyanotic, pedal edema - Neurological Exam Neurological exam: Present: CN II-XII intact, oriented X3, no focal deficits. Absent: pronater drift, facial droop, speech deficit - Skin Skin exam: Present: dry, intact - Patient Status Disposition: Home, Self-Care Condition: Good - Discharge Instructions Instructions: Laparoscopic Appendectomy (DC) Follow Up With: Corine Almanzar CNP [Advanced Practice Nurse] - 03/26/18 1:00 pm Additional Instructions: 1. No pushing, pulling, or lifting greater than 15 lbs for 2-4 weeks (depending upon procedure). 2. You may shower beginning today, but no tub baths, soaking, or swimming for 2 weeks. 3. You may resume driving when you are off narcotics and are safe to react in a car. 4. Take ibuprofen every 8 hours for discomfort. 5. Take stool softeners (Colace) or a water based laxative (Miralax) while taking narcotics. You may hold for loose stools. 6. Report any fevers greater than 100.5F, increase abdominal discomfort, drainage that looks like pus, increased redness or pain at the surgical site, or any vomiting. 7. Report any pain in the calves, shortness of breath, or rapid heartbeat. 8. Follow-up in the office as directed. - Diet and Activity Diet: low fat, low cholesterol, low salt diet - VTE Documentation of Mechanical Device: Intermittent pneumatic compression device
== END 2018-03-13 14:02 | disposition home or self-care (01) ==
LOC: EMEROOARM 19:19 → 2NENU 19:19 → SUATTDRO 21:19 → 3ANU 22:16
PROVIDERS: ADMIT Internal Medicine; ATTEND Internal Medicine

== ENCOUNTER 2019-08-18 17:46 | Inpatient (IN) ==
[2019-08-18] MEDS ORDERED: Isovue-370 500 ML BOTTLE IVP ONE ×2 (18:34→18:36)
[2019-08-18 19:15] LABS: Basophils # 0.1 K/mcL (0.0-0.2); Basophils % 0.8 %; Eosinophils # 0.2 K/mcL (0.0-0.6); Eosinophils % 2.6 %; Hematocrit 43.5 % (35.3-44.9); Hemoglobin 14.3 g/dL (11.5-15.4); Immature Granulocytes % 0.5 % (0-4); Lymphocytes # 1.3 K/mcL (0.6-4.6); Lymphocytes % 16.7 %; Mean Corpuscular HGB Conc 32.9 g/dL (31.6-35.5); Mean Corpuscular Hemoglobin 32.4 pg (28.0-33.3); Mean Corpuscular Volume 98.6 fL (83.0-100.0); Mean Platelet Volume 11.1 fL (9.4-12.4); Monocytes # 1.3 K/mcL (0.0-1.3); Monocytes % 15.9 %; Neutrophils # 5.1 K/mcL (1.6-8.9); Platelet Count 215 K/mcL (140-400); Red Blood Count 4.41 M/mcL (3.82-4.97); Red Cell Distribution Width 13.2 % (11.5-14.5); Segmented Neutrophils % 63.5 %
[2019-08-18 19:35] LABS: Albumin 3.9 g/dL (3.5-5.7); Albumin/Globulin Ratio 1.7 (1.1-2.2); Bilirubin,Total 0.8 mg/dL (0.3-1.0); Calcium 9.7 mg/dL (8.6-10.3); Globulin 2.3 g/dL (2.4-3.5); Potassium 4.5 mEq/L (3.5-5.1); Total Protein 6.2 g/dL (6.4-8.9)
[2019-08-18] MEDS ORDERED: cefTRIAXone 1,000 MG in Water for inj. (sterile) 10 ML IVP ONE (20:29)
[2019-08-18] MEDS ORDERED: Azithromycin 500 MG in 0.9 % Sodium Chloride 250 ML IVPB ONE (20:29)
[2019-08-18] MEDS ORDERED: *HR* HYDROcodone/Acet 10/325 mg TABLET PO ONE (22:06)
[2019-08-18] MEDS ORDERED: Ondansetron 4 MG/2 ML VIAL IVP ONE (22:06)
[2019-08-19] MEDS ORDERED: Ondansetron 4 MG/2 ML VIAL IVP PRN (00:27)
[2019-08-19] MEDS ORDERED: Naloxone 0.4 MG/ML INJ IVP PRN (00:27)
[2019-08-19] MEDS ORDERED: CloNIDine Patch 0.3 MG PATCH (WEEKLY) TD SCH ×2 (00:30→12:00)
[2019-08-19] MEDS: diazePAM 5 MG TABLET PO SCH ×3 (00:55→22:01)
[2019-08-19 06:44] LABS: Hematocrit 39.9 % (35.3-44.9); Hemoglobin 12.8 g/dL (11.5-15.4); Mean Corpuscular HGB Conc 32.1 g/dL (31.6-35.5); Mean Corpuscular Hemoglobin 31.1 pg (28.0-33.3); Mean Corpuscular Volume 96.8 fL (83.0-100.0); Mean Platelet Volume 11.5 fL (9.4-12.4); Platelet Count 200 K/mcL (140-400); Red Blood Count 4.12 M/mcL (3.82-4.97); Red Cell Distribution Width 13.4 % (11.5-14.5); White Blood Count 6.6 K/mcL (4.3-11.1)
[2019-08-19] MEDS ORDERED: Furosemide 40 MG/4 ML VIAL IVP ONE ×2 (06:55→15:00)
[2019-08-19 07:08] LABS: BUN/Creatinine Ratio 11 (6-26); Blood Urea Nitrogen 12 mg/dL (8-23); Calcium 8.8 mg/dL (8.6-10.3); Carbon Dioxide 30 mEq/L (23-29); Chloride 96 mEq/L (98-107); Glucose 74 mg/dL (70-105); Osmolality,Calculated 284 (280-300); Potassium 4.2 mEq/L (3.5-5.1); Sodium 138 mEq/L (136-145); eGFR For African Americans > 60 (> 60); eGFR For Non-African Americans 50 (> 60)
[2019-08-19] MEDS: Aspirin 325 MG TABLET PO SCH ×2 (08:59→22:01)
[2019-08-19] MEDS ORDERED: BIOTIN 800 MCG PO SCH (09:00)
[2019-08-19] MEDS ORDERED: Furosemide 20 MG TABLET PO SCH (09:00)
[2019-08-19] MEDS ORDERED: Ondansetron ODT 4 MG TAB.RAPDIS PO PRN (11:47)
[2019-08-19] MEDS: *HR* HYDROcodone/Acet 10/325 mg TABLET PO PRN (14:10)
[2019-08-19] MEDS ORDERED: Acetaminophen 325 MG TABLET PO PRN (16:36)
[2019-08-19] MEDS: cloNIDine HCl 0.1 MG TABLET PO PRN (16:58)
[2019-08-19] MEDS: Fluticasone Propionate Nasal 50 MCG/SPRAY BOTTLE NS SCH (22:58)
[2019-08-20 05:38] LABS: Calcium 9.4 mg/dL (8.6-10.3); Magnesium 1.7 mg/dL (1.6-2.6); Potassium 3.7 mEq/L (3.5-5.1)
[2019-08-20] MEDS: diazePAM 5 MG TABLET PO SCH (08:07)
[2019-08-20] MEDS: Fluticasone Propionate Nasal 50 MCG/SPRAY BOTTLE NS SCH (08:09)
[2019-08-20] MEDS: Aspirin 325 MG TABLET PO SCH (08:15)
[2019-08-20] MEDS: *HR* HYDROcodone/Acet 10/325 mg TABLET PO PRN (08:22)
[2019-08-20] MEDS ORDERED: UBIDECARENONE 200 MG PO SCH (09:00)
[2019-08-20] MEDS ORDERED: Vitamin B Complex/Vit C/Vit E 1 EACH TABLET PO SCH (09:00)
[2019-08-20] MEDS ORDERED: Magnesium Oxide 400 MG TABLET PO SCH (09:00)
[2019-08-20] MEDS ORDERED: Cholecalciferol (D-3) 1,000 UNIT (25MCG) TABLET PO SCH (09:00)
[2019-08-20] MEDS ORDERED: Cyanocobalamin (B-12) 1,000 MCG TABLET PO SCH (09:00)
[2019-08-20] MEDS ORDERED: predniSONE 1 MG TABLET PO SCH (09:00)
[2019-08-20] MEDS ORDERED: NON-FORMULARY MEDICATION 1 EACH EACH (Turmeric Root Extract [Turmeric] 500 MG) PO SCH (09:00)
[2019-08-20] MEDS ORDERED: Furosemide 40 MG TABLET PO SCH (10:35)
[2019-08-20] MEDS: cloNIDine HCl 0.1 MG TABLET PO PRN (11:20)
[2019-08-20 14:28] VITALS: BP 141/64
[2019-08-20 16:56] LABS: Adenovirus Not Detected (Not Detect); Coronavirus 229E Not Detected (Not Detect); Coronavirus HKU1 Not Detected (Not Detect); Coronavirus NL63 Not Detected (Not Detect); Coronavirus OC43 Not Detected (Not Detect); Human Metapneumovirus Not Detected (Not Detect); Human Rhinovirus/Enterovirus Not Detected (Not Detect); Influenza A Subtype 2009 H1 Not Detected (Not Detect)
[2019-08-20 16:57] LABS: Bordetella Pertussis Not Detected (Not Detect); Chlamydophila pneumoniae Not Detected (Not Detect); Influenza B Not Detected (Not Detect); Mycoplasma pneumoniae Not Detected (Not Detect); Parainfluenza Virus 1 Not Detected (Not Detect); Parainfluenza Virus 2 Not Detected (Not Detect); Parainfluenza Virus 3 Not Detected (Not Detect); Parainfluenza Virus 4 Not Detected (Not Detect); Respiratory Syncytial Virus Not Detected (Not Detect)
== END 2019-08-20 15:09 | disposition home or self-care (01) | DRG 304 ==
LOC: 3NENU 17:46 → EMEROOARM 17:46 → 3NENU 23:27 → 3BNU 08-19 09:44 → SUATTDRO 08-19 22:33
PROVIDERS: ADMIT Student in an Organized Health Care Education/Training Program; ATTEND Internal Medicine

== ENCOUNTER 2019-09-29 19:34 | Observation (INO) ==
[2019-09-29] MEDS ORDERED: Nitroglycerin 0.4 MG TAB.SUBL SL PRN (19:53)
[2019-09-29] MEDS ORDERED: Isovue-370 500 ML BOTTLE IVP ONE (19:53)
[2019-09-29] MEDS ORDERED: Ondansetron 4 MG/2 ML VIAL IVP ONE (19:54)
[2019-09-29 20:34] LABS: INR 1.2; Prothrombin Time 13.9 Seconds (9.4-12.1)
[2019-09-29 20:37] LABS: Activated Partial Thrombo Time 34.9 Seconds (26.0-36.0)
[2019-09-29 20:39] LABS: Basophils # 0.1 K/mcL (0.0-0.2); Basophils % 0.8 %; Eosinophils # 0.2 K/mcL (0.0-0.6); Eosinophils % 2.5 %; Hematocrit 48.5 % (35.3-44.9); Hemoglobin 15.4 g/dL (11.5-15.4); Immature Granulocytes % 0.2 % (0-4); Lymphocytes # 1.8 K/mcL (0.6-4.6); Lymphocytes % 20.3 %; Mean Corpuscular HGB Conc 31.8 g/dL (31.6-35.5); Mean Corpuscular Hemoglobin 30.2 pg (28.0-33.3); Mean Corpuscular Volume 95.1 fL (83.0-100.0); Mean Platelet Volume 11.4 fL (9.4-12.4); Monocytes # 1.3 K/mcL (0.0-1.3); Monocytes % 14.2 %; Neutrophils # 5.5 K/mcL (1.6-8.9); Platelet Count 276 K/mcL (140-400); Red Cell Distribution Width 13.1 % (11.5-14.5); White Blood Count 8.9 K/mcL (4.3-11.1)
[2019-09-29 20:47] LABS: BUN/Creatinine Ratio 26 (6-26); Blood Urea Nitrogen 36 mg/dL (8-23); Calcium 10.3 mg/dL (8.6-10.3); Carbon Dioxide 39 mEq/L (23-29); Chloride 87 mEq/L (98-107); Glucose 91 mg/dL (70-105); Osmolality,Calculated 290 (280-300); Potassium 2.7 mEq/L (3.5-5.1); Sodium 136 mEq/L (136-145); eGFR For African Americans 44 (> 60); eGFR For Non-African Americans 37 (> 60)
[2019-09-29 20:48] LABS: Troponin I < 0.03 ng/mL (< 0.04)
[2019-09-29] MEDS ORDERED: Potassium Chloride 40 MEQ, Lidocaine 1% 2 ML in 0.9 % Sodium Chloride 500 ML IVPB ONE (20:51)
[2019-09-29] MEDS: 0.9 % Sodium Chloride 1,000 ML IVC SCH (21:02)
[2019-09-29 21:10] LABS: Bilirubin,Urine Negative (Negative); Blood,Urine Negative (Negative); Clarity,Urine Cloudy (Clear); Color,Urine Yellow (Yellow); Glucose,Urine (UA) Normal (Normal); Ketones,Urine Negative (Negative); Leukocyte Esterase,Urine Trace (Negative); Nitrite,Urine Negative (Negative); Protein,Urine Negative (Neg-Trace); Specific Gravity,Urine 1.017 (1.010-1.025); Urobilinogen,Urine Normal (Normal)
[2019-09-29 21:11] LABS: Bacteria,Urine None Seen per hpf (None-Few); Hyaline Casts,Urine None Seen per lpf (None-Few); Squamous Epithelial Cell,Urine Many per lpf (None-Few)
[2019-09-29 21:22] LABS: Magnesium 1.6 mg/dL (1.6-2.6)
[2019-09-29] MEDS ORDERED: Aspirin 81 MG TAB.CHEW PO STA (21:50)
[2019-09-30] MEDS ORDERED: Ondansetron 4 MG/2 ML VIAL IVP PRN (00:07)
[2019-09-30] MEDS ORDERED: Naloxone 0.4 MG/ML INJ IVP PRN (00:07)
[2019-09-30] MEDS ORDERED: CloNIDine Patch 0.3 MG PATCH (WEEKLY) TD SCH (01:30)
[2019-09-30] MEDS ORDERED: Ondansetron ODT 4 MG TAB.RAPDIS PO PRN (01:30)
[2019-09-30] MEDS ORDERED: cloNIDine HCL 0.1 MG TABLET PO PRN (01:30)
[2019-09-30] MEDS: *HR* HYDROcodone/Acet 10/325 mg TABLET PO PRN ×3 (02:31→20:49)
[2019-09-30 02:32] LABS: Basophils # 0.1 K/mcL (0.0-0.2); Basophils % 0.8 %; Eosinophils # 0.3 K/mcL (0.0-0.6); Eosinophils % 3.5 %; Hematocrit 41.5 % (35.3-44.9); Hemoglobin 13.2 g/dL (11.5-15.4); Immature Granulocytes % 0.4 % (0-4); Lymphocytes # 2.1 K/mcL (0.6-4.6); Lymphocytes % 27.4 %; Mean Corpuscular HGB Conc 31.8 g/dL (31.6-35.5); Mean Corpuscular Hemoglobin 30.5 pg (28.0-33.3); Mean Corpuscular Volume 95.8 fL (83.0-100.0); Mean Platelet Volume 11.3 fL (9.4-12.4); Monocytes # 1.3 K/mcL (0.0-1.3); Monocytes % 17.1 %; Platelet Count 247 K/mcL (140-400); Red Blood Count 4.33 M/mcL (3.82-4.97); Red Cell Distribution Width 13.1 % (11.5-14.5); Segmented Neutrophils % 50.8 %; White Blood Count 7.8 K/mcL (4.3-11.1)
[2019-09-30] MEDS: 0.9 % Sodium Chloride 1,000 ML IVC SCH (04:55)
[2019-09-30] MEDS ORDERED: 0.9 % Sodium Chloride 1,000 ML IVC SCH (05:00)
[2019-09-30 08:48] LABS: BUN/Creatinine Ratio 27 (6-26); Blood Urea Nitrogen 30 mg/dL (8-23); Carbon Dioxide 35 mEq/L (23-29); Chloride 98 mEq/L (98-107); Glucose 82 mg/dL (70-105); Osmolality,Calculated 295 (280-300); Sodium 140 mEq/L (136-145); eGFR For African Americans 57 (> 60); eGFR For Non-African Americans 47 (> 60)
[2019-09-30 08:55] LABS: Troponin I < 0.03 ng/mL (< 0.04)
[2019-09-30] MEDS ORDERED: UBIDECARENONE 200 MG PO SCH (09:00)
[2019-09-30] MEDS: Furosemide 40 MG TABLET PO SCH ×2 (09:16→19:21)
[2019-09-30] MEDS: Aspirin 325 MG TABLET PO SCH ×2 (09:16→20:49)
[2019-09-30] MEDS: Magnesium Oxide 400 MG TABLET PO SCH (09:16)
[2019-09-30] MEDS: Vitamin B Complex/Vit C/Vit E 1 EACH TABLET PO SCH (13:06)
[2019-09-30 16:57] LABS: Alanine Aminotransferase 9 Units/L (7-52); Albumin 2.9 g/dL (3.5-5.7); Alkaline Phosphatase 73 Units/L (34-104); Aspartate Amino Transferase 17 Units/L (13-39); BUN/Creatinine Ratio 24 (6-26); Bilirubin,Total 0.7 mg/dL (0.3-1.0); Blood Urea Nitrogen 25 mg/dL (8-23); Calcium 9.1 mg/dL (8.6-10.3); Carbon Dioxide 35 mEq/L (23-29); Chloride 96 mEq/L (98-107); Glucose 152 mg/dL (70-105); Lipase 45 Units/L (11-82); Osmolality,Calculated 293 (280-300); Potassium 3.1 mEq/L (3.5-5.1); Sodium 138 mEq/L (136-145); Total Protein 5.9 g/dL (6.4-8.9); eGFR For African Americans > 60 (> 60); eGFR For Non-African Americans 51 (> 60)
[2019-09-30] MEDS: 0.9 % Sodium Chloride 500 ML IVC SCH (17:33)
[2019-09-30] MEDS ORDERED: Hydrocortisone Rectal 2.5% CRM 28 GM TUBE RC PRN (19:31)
[2019-09-30] MEDS ORDERED: atenoloL 50 MG TABLET PO SCH (21:00)
[2019-10-01 05:20] LABS: Basophils # 0.1 K/mcL (0.0-0.2); Eosinophils # 0.4 K/mcL (0.0-0.6); Eosinophils % 5.2 %; Hematocrit 40.5 % (35.3-44.9); Hemoglobin 12.9 g/dL (11.5-15.4); Immature Granulocytes % 0.4 % (0-4); Lymphocytes # 2.1 K/mcL (0.6-4.6); Lymphocytes % 26.2 %; Mean Corpuscular HGB Conc 31.9 g/dL (31.6-35.5); Mean Corpuscular Hemoglobin 30.8 pg (28.0-33.3); Mean Corpuscular Volume 96.7 fL (83.0-100.0); Mean Platelet Volume 11.5 fL (9.4-12.4); Monocytes # 1.3 K/mcL (0.0-1.3); Neutrophils # 4.1 K/mcL (1.6-8.9); Platelet Count 218 K/mcL (140-400); Red Blood Count 4.19 M/mcL (3.82-4.97); Red Cell Distribution Width 13.4 % (11.5-14.5); Segmented Neutrophils % 51.2 %; White Blood Count 7.9 K/mcL (4.3-11.1)
[2019-10-01 05:43] LABS: BUN/Creatinine Ratio 24 (6-26); Blood Urea Nitrogen 24 mg/dL (8-23); Calcium 9.1 mg/dL (8.6-10.3); Carbon Dioxide 29 mEq/L (23-29); Chloride 102 mEq/L (98-107); Glucose 84 mg/dL (70-105); Osmolality,Calculated 293 (280-300); Potassium 3.2 mEq/L (3.5-5.1); Sodium 140 mEq/L (136-145); eGFR For African Americans > 60 (> 60); eGFR For Non-African Americans 54 (> 60)
[2019-10-01] MEDS: 0.9 % Sodium Chloride 500 ML IVC SCH (06:24)
[2019-10-01] MEDS: Vitamin B Complex/Vit C/Vit E 1 EACH TABLET PO SCH (07:23)
[2019-10-01] MEDS: Aspirin 325 MG TABLET PO SCH (07:23)
[2019-10-01] MEDS: *HR* HYDROcodone/Acet 10/325 mg TABLET PO PRN ×2 (07:23→14:08)
[2019-10-01] MEDS: Magnesium Oxide 400 MG TABLET PO SCH (07:24)
[2019-10-01] MEDS ORDERED: Furosemide 40 MG/4 ML VIAL IVP ONE (13:23)
[2019-10-01] MEDS ORDERED: amLODIPine 5 MG TABLET PO SCH (13:45)
[2019-10-01] MEDS: Furosemide 40 MG TABLET PO SCH ×2 (14:01→14:16)
[2019-10-01 15:03] VITALS: BP 168/78
[2019-10-01] MEDS ORDERED: Doxycycline 100 MG CAPSULE PO SCH (21:00)
== END 2019-10-01 18:25 | disposition home or self-care (01) ==
LOC: EMEROOARM 19:34 → CDU 19:34 → SUATTDRO 22:43 → CDU 23:48 → 3BNU 09-30 13:37
PROVIDERS: ADMIT Internal Medicine; ATTEND Internal Medicine

== ENCOUNTER 2021-10-02 17:08 | Inpatient (IN) ==
[2021-10-02 18:33] LABS: Basophils % 0.3 %; Immature Granulocytes % 1.7 % (0-4); Mean Corpuscular Volume 96.1 fL (83.0-100.0)
[2021-10-02 18:34] LABS: Basophils # 0.1 K/mcL (0.0-0.2); Eosinophils # 0.1 K/mcL (0.0-0.6); Eosinophils % 0.3 %; Hematocrit 41.5 % (35.3-44.9); Hemoglobin 13.7 g/dL (11.5-15.4); Lymphocytes # 0.7 K/mcL (0.6-4.6); Lymphocytes % 2.3 %; Mean Corpuscular Hemoglobin 31.7 pg (28.0-33.3); Monocytes # 3.3 K/mcL (0.0-1.3); Monocytes % 10.9 %; Platelet Count 260 K/mcL (140-400); Red Blood Count 4.32 M/mcL (3.82-4.97); Segmented Neutrophils % 84.5 %
[2021-10-02 18:37] LABS: Neutrophils # 25.9 K/mcL (1.6-8.9)
[2021-10-02 18:39] LABS: White Blood Count 30.6 K/mcL (4.3-11.1)
[2021-10-02 18:54] LABS: BUN/Creatinine Ratio 32 (6-26); Blood Urea Nitrogen 23 mg/dL (8-23); Calcium 10.1 mg/dL (8.6-10.3); Carbon Dioxide 29 mEq/L (23-29); Chloride 93 mEq/L (98-107); Glucose 85 mg/dL (70-105); Osmolality,Calculated 279 (280-300); Potassium 3.8 mEq/L (3.5-5.1); Sodium 133 mEq/L (136-145); eGFR For African Americans > 60 (> 60); eGFR For Non-African Americans > 60 (> 60)
[2021-10-02 18:55] LABS: Troponin I 0.03 ng/mL (< 0.04)
[2021-10-02 19:00] LABS: Platelet Estimate Normal (Normal)
[2021-10-02] MEDS ORDERED: *HR* FentaNYL (PF) 100 MCG/2 ML VIAL IVP STA (19:28)
[2021-10-02] MEDS ORDERED: Ondansetron 4 MG/2 ML VIAL IVP ONE (19:28)
[2021-10-02 19:39] LABS: Bacteria,Urine Few per hpf (None-Few); Bilirubin,Urine Small (Negative); Blood,Urine Small (Negative); Clarity,Urine Turbid (Clear); Color,Urine Yellow (Yellow); Glucose,Urine (UA) Normal (Normal); Hyaline Casts,Urine Few per lpf (None Seen); Ketones,Urine 20 mg/dL (Negative); Leukocyte Esterase,Urine Negative (Negative); Mucus,Urine Few per lpf (None-Few); Nitrite,Urine Negative (Negative); Protein,Urine 100 mg/dL (Neg-Trace); RBC,Urine 0-3 per hpf (0-3); Specific Gravity,Urine 1.024 (1.010-1.025); Squamous Epithelial Cell,Urine Few per hpf (None-Few); WBC,Urine 15-30 per hpf (0-3)
[2021-10-02] MEDS ORDERED: cefTRIAXone 1,000 MG in 0.9 % Sodium Chloride Mini Bag 100 ML IVPB STA (20:12)
[2021-10-02] MEDS ORDERED: Acetaminophen 325 MG TABLET PO PRN (20:28)
[2021-10-02] MEDS ORDERED: Naloxone 0.4 MG/ML INJ IVP PRN (20:28)
[2021-10-02] MEDS ORDERED: Nitroglycerin 0.4 MG TAB.SUBL SL PRN (20:32)
[2021-10-02] MEDS ORDERED: Perflutren Lipid Microsphere 1.3 ML in 0.9 % Sodium Chloride 8.7 ML IVP PRN (20:33)
[2021-10-02] MEDS ORDERED: cefTRIAXone 1,000 MG in Water for inj. (sterile) 10 ML IVP ONE (21:14)
[2021-10-02] MEDS: 0.9 % Sodium Chloride 1,000 ML IVC SCH (22:14)
[2021-10-02 23:15] LABS: Adenovirus Not Detected (Not Detect); Bordetella Pertussis Not Detected (Not Detect); Chlamydophila pneumoniae Not Detected (Not Detect); Coronavirus 229E Not Detected (Not Detect); Coronavirus HKU1 Not Detected (Not Detect); Coronavirus NL63 Not Detected (Not Detect); Coronavirus OC43 Not Detected (Not Detect); Human Metapneumovirus Not Detected (Not Detect); Human Rhinovirus/Enterovirus Not Detected (Not Detect); Influenza A Subtype 2009 H1 Not Detected (Not Detect); Influenza B Not Detected (Not Detect); Mycoplasma pneumoniae Not Detected (Not Detect); Parainfluenza Virus 1 Not Detected (Not Detect); Parainfluenza Virus 2 Not Detected (Not Detect); Parainfluenza Virus 3 Not Detected (Not Detect); Parainfluenza Virus 4 Not Detected (Not Detect); Respiratory Syncytial Virus Not Detected (Not Detect); SARS-CoV-2 Not Detected (Not Detect)
[2021-10-03 00:29] LABS: Hemoglobin 13.2 g/dL (11.5-15.4); Red Cell Distribution Width 12.8 % (11.5-14.5)
[2021-10-03 00:31] LABS: Mean Corpuscular Hemoglobin 31.1 pg (28.0-33.3); Mean Corpuscular Volume 94.3 fL (83.0-100.0); Platelet Count 259 K/mcL (140-400); Red Blood Count 4.24 M/mcL (3.82-4.97)
[2021-10-03 00:38] LABS: White Blood Count 33.4 K/mcL (4.3-11.1)
[2021-10-03 00:51] LABS: BUN/Creatinine Ratio 35 (6-26); Blood Urea Nitrogen 19 mg/dL (8-23); Calcium 9.6 mg/dL (8.6-10.3); Carbon Dioxide 26 mEq/L (23-29); Chloride 94 mEq/L (98-107); Cholesterol 70 mg/dL (< 200); Glucose 95 mg/dL (70-105); HDL Cholesterol 23 mg/dL (40-59); LDL Cholesterol,Calculated 30 mg/dL (< 100); Magnesium 1.5 mg/dL (1.6-2.6); Osmolality,Calculated 276 (280-300); Phosphorous 2.5 mg/dL (2.7-4.5); Potassium 3.9 mEq/L (3.5-5.1); Sodium 132 mEq/L (136-145); Triglycerides 84 mg/dL (< 150); eGFR For African Americans > 60 (> 60); eGFR For Non-African Americans > 60 (> 60)
[2021-10-03 01:05] LABS: Thyroid Stimulating Hormone 0.951 mcIU/mL (0.340-5.600)
[2021-10-03] MEDS: Ondansetron ODT 4 MG TAB.RAPDIS SL PRN ×2 (08:41→16:41)
[2021-10-03] MEDS ORDERED: Aspirin 81 MG TAB.CHEW PO SCH (09:00)
[2021-10-03] MEDS ORDERED: SODIUM ZIRCONIUM CYCLOSILICATE 5 GM POWD.PACK PO SCH (09:00)
[2021-10-03] MEDS ORDERED: Aspirin 325 MG TABLET PO SCH (09:00)
[2021-10-03 10:17] LABS: Estimated Average Glucose 126 mg/dl
[2021-10-03] MEDS: amLODIPine 5 MG TABLET PO SCH (10:18)
[2021-10-03] MEDS: Furosemide 40 MG TABLET PO SCH ×3 (10:18→16:39)
[2021-10-03] MEDS: atenoloL 50 MG TABLET PO SCH ×2 (10:18→21:11)
[2021-10-03] MEDS: 0.9 % Sodium Chloride 1,000 ML IVC SCH (10:21)
[2021-10-03 11:21] LABS: Albumin 3.3 g/dL (3.5-5.7); Albumin/Globulin Ratio 0.9 (1.1-2.2); Bilirubin,Direct 0.9 mg/dL (0.0-0.2); Bilirubin,Indirect 0.5 mg/dL (0.0-1.0); Bilirubin,Total 1.4 mg/dL (0.3-1.0); Globulin 3.7 g/dL (2.4-3.5); Troponin I 0.51 ng/mL (< 0.04)
[2021-10-03] MEDS ORDERED: *HR* Heparin 5,000 UNIT/ML VIAL IVP ONE (11:35)
[2021-10-03] MEDS ORDERED: *HR* Heparin 5,000 UNIT/ML VIAL IVP PRN ×2 (11:35)
[2021-10-03] MEDS ORDERED: Heparin 25,000UNIT/250ML 1/2NS 25,000 UNIT/250 ML IV.SOLN IVC SCH (11:45)
[2021-10-03 12:50] LABS: Bacteria,Urine Few per hpf (None-Few); Bilirubin,Urine Negative (Negative); Blood,Urine Large (Negative); Clarity,Urine Clear (Clear); Color,Urine Yellow (Yellow); Glucose,Urine (UA) Normal (Normal); Ketones,Urine 40 mg/dL (Negative); Leukocyte Esterase,Urine Negative (Negative); Mucus,Urine Few per lpf (None-Few); Nitrite,Urine Negative (Negative); Protein,Urine >=300 mg/dL (Neg-Trace); Squamous Epithelial Cell,Urine Few per hpf (None-Few); WBC,Urine 0-3 per hpf (0-3)
[2021-10-03] MEDS: *HR* Promethazine 25 MG/ML VIAL IM PRN ×2 (13:30→21:10)
[2021-10-03] MEDS: Cefepime HCl 1,000 MG in 0.9 % Sodium Chloride 10 ML IVP SCH ×2 (13:33→21:11)
[2021-10-03 14:24] LABS: Platelet Count 294 K/mcL (140-400)
[2021-10-03 14:25] LABS: Hematocrit 42.7 % (35.3-44.9); Mean Corpuscular HGB Conc 32.8 g/dL (31.6-35.5); Mean Corpuscular Hemoglobin 30.7 pg (28.0-33.3); Mean Corpuscular Volume 93.6 fL (83.0-100.0); Mean Platelet Volume 11.4 fL (9.4-12.4); Red Blood Count 4.56 M/mcL (3.82-4.97); Red Cell Distribution Width 12.7 % (11.5-14.5)
[2021-10-03 14:32] LABS: Heparin anti-factor XA UFH < 0.04 IU/mL (0.30-0.70)
[2021-10-03 14:33] LABS: INR 1.5; Prothrombin Time 16.2 Seconds (9.4-12.1)
[2021-10-03 14:49] LABS: Hemoglobin 14.1 g/dL (11.5-15.4)
[2021-10-03] MEDS: diazePAM 5 MG TABLET PO SCH ×2 (15:40→21:11)
[2021-10-03 15:45] LABS: White Blood Count 34.8 K/mcL (4.3-11.1)
[2021-10-03] MEDS ORDERED: *HR* Labetalol 20 MG/4 ML SYRINGE IVP ONE (16:05)
[2021-10-03 19:21] LABS: Hematocrit 41.8 % (35.3-44.9); Hemoglobin 14.4 g/dL (11.5-15.4)
[2021-10-03] MEDS ORDERED: cefTRIAXone 1,000 MG in Water for inj. (sterile) 10 ML IVP ONE (20:33)
[2021-10-03] MEDS ORDERED: cefTRIAXone 2,000 MG in 0.9 % Sodium Chloride Mini Bag 100 ML IVPB SCH (21:00)
[2021-10-04] MEDS: Ondansetron ODT 4 MG TAB.RAPDIS SL PRN (01:32)
[2021-10-04 05:06] LABS: Hematocrit 41.3 % (35.3-44.9)
[2021-10-04 05:08] LABS: Hemoglobin 13.9 g/dL (11.5-15.4); Red Cell Distribution Width 12.9 % (11.5-14.5); Segmented Neutrophils % 85.4 %
[2021-10-04 05:10] LABS: Basophils # 0.1 K/mcL (0.0-0.2); Basophils % 0.3 %; Eosinophils # 0.1 K/mcL (0.0-0.6); Eosinophils % 0.2 %; Hematocrit 40.8 % (35.3-44.9); Lymphocytes % 3.1 %; Mean Corpuscular HGB Conc 34.1 g/dL (31.6-35.5); Mean Corpuscular Hemoglobin 31.2 pg (28.0-33.3); Mean Corpuscular Volume 91.5 fL (83.0-100.0); Monocytes # 3.1 K/mcL (0.0-1.3); Neutrophils # 26.3 K/mcL (1.6-8.9); Platelet Count 311 K/mcL (140-400); Red Blood Count 4.46 M/mcL (3.82-4.97)
[2021-10-04 05:15] LABS: White Blood Count 30.8 K/mcL (4.3-11.1)
[2021-10-04 05:37] LABS: Alanine Aminotransferase 110 Units/L (7-52); Albumin 3.3 g/dL (3.5-5.7); Albumin/Globulin Ratio 0.9 (1.1-2.2); Alkaline Phosphatase 418 Units/L (34-104); Aspartate Amino Transferase 105 Units/L (13-39); BUN/Creatinine Ratio 63 (6-26); Bilirubin,Total 0.8 mg/dL (0.3-1.0); Blood Urea Nitrogen 31 mg/dL (8-23); Calcium 9.9 mg/dL (8.6-10.3); Carbon Dioxide 30 mEq/L (23-29); Chloride 99 mEq/L (98-107); Globulin 3.6 g/dL (2.4-3.5); Glucose 135 mg/dL (70-105); Osmolality,Calculated 301 (280-300); Potassium 2.9 mEq/L (3.5-5.1); Sodium 141 mEq/L (136-145); Total Protein 6.9 g/dL (6.4-8.9); eGFR For African Americans > 60 (> 60); eGFR For Non-African Americans > 60 (> 60)
[2021-10-04] MEDS: Cefepime HCl 1,000 MG in 0.9 % Sodium Chloride 10 ML IVP SCH ×3 (06:48→21:05)
[2021-10-04] MEDS: diazePAM 5 MG TABLET PO SCH ×2 (07:56→21:06)
[2021-10-04] MEDS: Magnesium Oxide 400 MG TABLET PO SCH (07:56)
[2021-10-04] MEDS: Furosemide 40 MG TABLET PO SCH ×2 (07:56→17:48)
[2021-10-04] MEDS: amLODIPine 5 MG TABLET PO SCH (07:56)
[2021-10-04] MEDS ORDERED: 0.9 % Sodium Chloride 1,000 ML ONE (08:33)
[2021-10-04] MEDS: 0.9 % Sodium Chloride 1,000 ML IVC SCH (09:30)
[2021-10-04] MEDS ORDERED: *HR* Heparin 5,000 UNIT/ML VIAL IVP ONE (10:40)
[2021-10-04] MEDS ORDERED: *HR* Heparin 5,000 UNIT/ML VIAL IVP PRN ×2 (10:40)
[2021-10-04 11:36] LABS: Adenovirus F 40/41 PCR Not detected (Not detect); Astrovirus PCR Not detected (Not detect); C.difficile Toxin A/B Gene PCR Not detected (Not detect); Campylobacter by PCR Not detected (Not detect); Cryptosporidium by PCR Not detected (Not detect); Cyclospora cayetanensis PCR Not detected (Not detect); E. coli O157 by PCR Not detected (Not detect); Entamoeba histolytica PCR Not detected (Not detect); Enteroaggregative E.coli(EAEC) Not detected (Not detect); Enteropathogenic E.coli(EPEC) Not detected (Not detect); Enterotoxigenic E.coli (ETEC) Not detected (Not detect); Giardia lamblia PCR Not detected (Not detect); Norovirus GI/GII PCR Not detected (Not detect); Plesiomonas shigelloides PCR Not detected (Not detect); Rotavirus A PCR Not detected (Not detect); Salmonella PCR Not detected (Not detect); Sapovirus PCR Not detected (Not detect); Shig/EnteroinvasiveE coli EIEC Not detected (Not detect); Shigalike tox-prod E coli STEC Not detected (Not detect); Vibrio PCR Not detected (Not detect); Vibrio cholerae PCR Not detected (Not detect); Yersinia enterocolitica PCR Not detected (Not detect)
[2021-10-04] MEDS: Heparin 25,000UNIT/250ML 1/2NS 25,000 UNIT/250 ML IV.SOLN IVC SCH (13:46)
[2021-10-04] MEDS: Pantoprazole 40 MG VIAL IVP SCH (17:48)
[2021-10-04] MEDS: MetroNIDAZOLE 500 MG/100 ML 500 MG/100 ML BAG IVPB SCH (17:53)
[2021-10-04] MEDS: atenoloL 50 MG TABLET PO SCH (21:06)
[2021-10-04 21:26] LABS: Red Cell Distribution Width 13.3 % (11.5-14.5)
[2021-10-04 21:27] LABS: Hematocrit 34.7 % (35.3-44.9); Hemoglobin 11.5 g/dL (11.5-15.4); Mean Corpuscular HGB Conc 33.1 g/dL (31.6-35.5); Mean Corpuscular Hemoglobin 31.2 pg (28.0-33.3); Mean Platelet Volume 11.6 fL (9.4-12.4); Platelet Count 299 K/mcL (140-400); Red Blood Count 3.69 M/mcL (3.82-4.97); White Blood Count 28.5 K/mcL (4.3-11.1)
[2021-10-04 21:33] LABS: Phosphorous 2.2 mg/dL (2.7-4.5)
[2021-10-04 21:33] LABS: Heparin anti-factor XA UFH 0.11 IU/mL (0.30-0.70)
[2021-10-04 21:34] LABS: INR 1.4; Prothrombin Time 15.6 Seconds (9.4-12.1)
[2021-10-05] MEDS: MetroNIDAZOLE 500 MG/100 ML 500 MG/100 ML BAG IVPB SCH ×3 (00:50→16:52)
[2021-10-05] MEDS: Cefepime HCl 1,000 MG in 0.9 % Sodium Chloride 10 ML IVP SCH ×3 (02:58→19:54)
[2021-10-05] MEDS: Pantoprazole 40 MG VIAL IVP SCH ×2 (04:07→16:53)
[2021-10-05] MEDS: 0.9 % Sodium Chloride 1,000 ML IVC SCH (04:10)
[2021-10-05 07:01] LABS: Basophils % 0.3 %; Eosinophils % 0.4 %
[2021-10-05 07:03] LABS: Basophils # 0.1 K/mcL (0.0-0.2); Eosinophils # 0.1 K/mcL (0.0-0.6); Hematocrit 33.5 % (35.3-44.9); Hemoglobin 10.9 g/dL (11.5-15.4); Immature Granulocytes % 1.5 % (0-4); Lymphocytes # 1.2 K/mcL (0.6-4.6); Lymphocytes % 4.5 %; Mean Corpuscular HGB Conc 32.5 g/dL (31.6-35.5); Mean Corpuscular Hemoglobin 31.2 pg (28.0-33.3); Mean Platelet Volume 12.4 fL (9.4-12.4); Monocytes # 2.7 K/mcL (0.0-1.3); Monocytes % 10.2 %; Neutrophils # 22.2 K/mcL (1.6-8.9); Platelet Count 288 K/mcL (140-400); Red Blood Count 3.49 M/mcL (3.82-4.97); Red Cell Distribution Width 13.4 % (11.5-14.5); Segmented Neutrophils % 83.1 %; White Blood Count 26.7 K/mcL (4.3-11.1)
[2021-10-05] MEDS: amLODIPine 5 MG TABLET PO SCH (07:29)
[2021-10-05] MEDS: Magnesium Oxide 400 MG TABLET PO SCH (07:29)
[2021-10-05] MEDS: Furosemide 40 MG TABLET PO SCH (07:29)
[2021-10-05] MEDS: diazePAM 5 MG TABLET PO SCH ×2 (07:29→19:53)
[2021-10-05 07:46] LABS: Alanine Aminotransferase 83 Units/L (7-52); Albumin 2.7 g/dL (3.5-5.7); Albumin/Globulin Ratio 0.9 (1.1-2.2); Alkaline Phosphatase 325 Units/L (34-104); Aspartate Amino Transferase 100 Units/L (13-39); BUN/Creatinine Ratio 50 (6-26); Bilirubin,Total 0.6 mg/dL (0.3-1.0); Blood Urea Nitrogen 30 mg/dL (8-23); Calcium 9.1 mg/dL (8.6-10.3); Carbon Dioxide 28 mEq/L (23-29); Chloride 103 mEq/L (98-107); Glucose 95 mg/dL (70-105); Magnesium 1.7 mg/dL (1.6-2.6); Osmolality,Calculated 294 (280-300); Phosphorous 2.2 mg/dL (2.7-4.5); Potassium 3.6 mEq/L (3.5-5.1); Sodium 139 mEq/L (136-145); Total Protein 5.7 g/dL (6.4-8.9); eGFR For African Americans > 60 (> 60); eGFR For Non-African Americans > 60 (> 60)
[2021-10-05] MEDS: Aspirin 81 MG TAB.CHEW PO SCH (08:44)
[2021-10-05] MEDS ORDERED: *HR* LORazepam 2 MG/ML VIAL IVP ONE ×2 (10:04→18:00)
[2021-10-05] MEDS ORDERED: Ketorolac 30 MG/ML VIAL IVP ONE ×2 (10:05→18:00)
[2021-10-05] MEDS ORDERED: *HR* HYDROcodone/Acet 5/325 mg TABLET PO ONE ×2 (10:05→18:00)
[2021-10-05] MEDS: *HR* Promethazine 25 MG/ML VIAL IM PRN (11:23)
[2021-10-05] MEDS: Heparin 25,000UNIT/250ML 1/2NS 25,000 UNIT/250 ML IV.SOLN IVC SCH (13:59)
[2021-10-05 14:45] LABS: Hepatitis B Surface Antigen Nonreactive (Nonreactive)
[2021-10-05 14:50] LABS: Hematocrit 30.7 % (35.3-44.9)
[2021-10-05 15:14] LABS: Hepatitis C Virus Antibody Nonreactive (Nonreactive)
[2021-10-05 15:16] LABS: Hepatitis A Antibody IgM Nonreactive (Nonreactive)
[2021-10-05] MEDS: atenoloL 50 MG TABLET PO SCH (19:54)
[2021-10-05] MEDS ORDERED: CloNIDine Patch 0.3 MG PATCH (WEEKLY) TD SCH (20:00)
[2021-10-06] MEDS: Cefepime HCl 1,000 MG in 0.9 % Sodium Chloride 10 ML IVP SCH ×2 (06:56→12:50)
[2021-10-06] MEDS: Pantoprazole 40 MG VIAL IVP SCH ×2 (06:57→16:51)
[2021-10-06] MEDS: amLODIPine 5 MG TABLET PO SCH (07:57)
[2021-10-06] MEDS: Aspirin 81 MG TAB.CHEW PO SCH (07:57)
[2021-10-06] MEDS: diazePAM 5 MG TABLET PO SCH ×2 (07:58→21:28)
[2021-10-06] MEDS: MetroNIDAZOLE 500 MG/100 ML 500 MG/100 ML BAG IVPB SCH ×4 (07:58→23:55)
[2021-10-06] MEDS: Magnesium Oxide 400 MG TABLET PO SCH (07:58)
[2021-10-06] MEDS: 0.9 % Sodium Chloride 1,000 ML IVC SCH ×2 (10:11→22:47)
[2021-10-06 13:15] LABS: Hematocrit 27.7 % (35.3-44.9); Hemoglobin 9.3 g/dL (11.5-15.4); Mean Corpuscular HGB Conc 33.6 g/dL (31.6-35.5); Mean Corpuscular Hemoglobin 31.5 pg (28.0-33.3); Mean Corpuscular Volume 93.9 fL (83.0-100.0); Mean Platelet Volume 11.8 fL (9.4-12.4); Platelet Count 303 K/mcL (140-400); Red Blood Count 2.95 M/mcL (3.82-4.97); Red Cell Distribution Width 13.8 % (11.5-14.5); White Blood Count 25.6 K/mcL (4.3-11.1)
[2021-10-06 13:37] LABS: Lymphocytes # 1.3 K/mcL (0.6-4.6); Monocytes # 1.3 K/mcL (0.0-1.3); Neutrophils # 22.8 K/mcL (1.6-8.9); Platelet Estimate Normal (Normal); Toxic Granulation Present (Not Present)
[2021-10-06 13:44] LABS: Alanine Aminotransferase 65 Units/L (7-52); Albumin 2.6 g/dL (3.5-5.7); Albumin/Globulin Ratio 0.9 (1.1-2.2); Alkaline Phosphatase 220 Units/L (34-104); Aspartate Amino Transferase 85 Units/L (13-39); BUN/Creatinine Ratio 60 (6-26); Bilirubin,Total 0.4 mg/dL (0.3-1.0); Blood Urea Nitrogen 42 mg/dL (8-23); Carbon Dioxide 25 mEq/L (23-29); Chloride 104 mEq/L (98-107); Globulin 2.9 g/dL (2.4-3.5); Glucose 107 mg/dL (70-105); Osmolality,Calculated 297 (280-300); Potassium 3.1 mEq/L (3.5-5.1); Sodium 138 mEq/L (136-145); Total Protein 5.5 g/dL (6.4-8.9); eGFR For African Americans > 60 (> 60); eGFR For Non-African Americans > 60 (> 60)
[2021-10-06] MEDS ORDERED: Cefepime HCl 2,000 MG in 0.9 % Sodium Chloride 10 ML IVP SCH ×2 (14:00→21:00)
[2021-10-06] MEDS: atenoloL 50 MG TABLET PO SCH (21:28)
[2021-10-06] MEDS: Melatonin 3 MG TABLET PO PRN (21:28)
[2021-10-07] MEDS: Cefepime HCl 2,000 MG in 0.9 % Sodium Chloride 10 ML IVP SCH ×2 (03:00→13:20)
[2021-10-07] MEDS: Pantoprazole 40 MG VIAL IVP SCH ×2 (05:18→17:07)
[2021-10-07] MEDS: MetroNIDAZOLE 500 MG/100 ML 500 MG/100 ML BAG IVPB SCH ×2 (07:39→16:08)
[2021-10-07] MEDS: Magnesium Oxide 400 MG TABLET PO SCH (07:39)
[2021-10-07] MEDS: Aspirin 81 MG TAB.CHEW PO SCH (07:39)
[2021-10-07] MEDS: diazePAM 5 MG TABLET PO SCH ×2 (07:40→20:42)
[2021-10-07] MEDS: amLODIPine 5 MG TABLET PO SCH (07:40)
[2021-10-07] MEDS ORDERED: Ondansetron 4 MG/2 ML VIAL IVP PRN (08:59)
[2021-10-07] MEDS: Ringers Solution, Lactated 1,000 ML IVC SCH (09:12)
[2021-10-07] MEDS ORDERED: *HR* FentaNYL (PF) 100 MCG/2 ML VIAL ONE (09:35)
[2021-10-07] MEDS ORDERED: *HR* Propofol 200 MG/20 ML VIAL IVP ONE (09:35)
[2021-10-07] MEDS ORDERED: Ondansetron 4 MG/2 ML VIAL ONE (09:38)
[2021-10-07] MEDS ORDERED: Lidocaine -MPF 2% 5 ML VIAL ONE (09:38)
[2021-10-07] MEDS ORDERED: *HR* Rocuronium Bromide 50 MG/5 ML VIAL ONE (09:40)
[2021-10-07] MEDS ORDERED: Lidocaine HCL 4 ML Topical Solution (Laryng-O-Jet Kit Sterile Pak) TP ONE (09:40)
[2021-10-07] MEDS ORDERED: *HR* Etomidate 40 MG/20 ML VIAL IVP ONE (09:46)
[2021-10-07] MEDS ORDERED: EPHEDrine 50 MG/ML VIAL ONE (10:10)
[2021-10-07] MEDS ORDERED: *HR* Vasopressin 20 UNIT/ML VIAL ONE (10:16)
[2021-10-07] MEDS ORDERED: Indomethacin 50 MG SUPP.RECT RC ONE (10:50)
[2021-10-07 15:19] LABS: Red Cell Distribution Width 13.8 % (11.5-14.5)
[2021-10-07 15:20] LABS: Hematocrit 26.4 % (35.3-44.9); Hemoglobin 8.5 g/dL (11.5-15.4); Mean Corpuscular HGB Conc 32.2 g/dL (31.6-35.5); Mean Corpuscular Hemoglobin 30.8 pg (28.0-33.3); Mean Corpuscular Volume 95.7 fL (83.0-100.0); Mean Platelet Volume 12.1 fL (9.4-12.4); Platelet Count 307 K/mcL (140-400); Red Blood Count 2.76 M/mcL (3.82-4.97); White Blood Count 28.6 K/mcL (4.3-11.1)
[2021-10-07 15:34] LABS: Alanine Aminotransferase 47 Units/L (7-52); Albumin 2.7 g/dL (3.5-5.7); Albumin/Globulin Ratio 0.9 (1.1-2.2); Alkaline Phosphatase 192 Units/L (34-104); Aspartate Amino Transferase 46 Units/L (13-39); BUN/Creatinine Ratio 39 (6-26); Bilirubin,Total 0.5 mg/dL (0.3-1.0); Blood Urea Nitrogen 21 mg/dL (8-23); Calcium 8.9 mg/dL (8.6-10.3); Carbon Dioxide 24 mEq/L (23-29); Chloride 103 mEq/L (98-107); Glucose 116 mg/dL (70-105); Osmolality,Calculated 290 (280-300); Potassium 3.6 mEq/L (3.5-5.1); Sodium 138 mEq/L (136-145); Total Protein 5.7 g/dL (6.4-8.9); eGFR For African Americans > 60 (> 60); eGFR For Non-African Americans > 60 (> 60)
[2021-10-07 15:48] LABS: Lymphocytes # 0.9 K/mcL (0.6-4.6); Monocytes # 0.3 K/mcL (0.0-1.3); Neutrophils # 26.6 K/mcL (1.6-8.9); Platelet Estimate Normal (Normal); Toxic Granulation Present (Not Present)
[2021-10-07] MEDS: *HR* HYDROcodone/Acet 10/325 mg TABLET PO PRN (16:20)
[2021-10-07] MEDS: atenoloL 50 MG TABLET PO SCH (20:41)
[2021-10-07] MEDS ORDERED: Aspirin Enteric Coated 81 MG Tablet PO ONE (20:43)
[2021-10-08] MEDS: *HR* HYDROcodone/Acet 10/325 mg TABLET PO PRN ×2 (01:09→21:42)
[2021-10-08] MEDS: MetroNIDAZOLE 500 MG/100 ML 500 MG/100 ML BAG IVPB SCH ×4 (01:09→23:53)
[2021-10-08] MEDS: Cefepime HCl 2,000 MG in 0.9 % Sodium Chloride 10 ML IVP SCH ×2 (02:51→15:11)
[2021-10-08] MEDS: Pantoprazole 40 MG VIAL IVP SCH ×2 (06:29→17:55)
[2021-10-08] MEDS: amLODIPine 5 MG TABLET PO SCH (09:05)
[2021-10-08] MEDS: Magnesium Oxide 400 MG TABLET PO SCH (09:05)
[2021-10-08] MEDS: diazePAM 5 MG TABLET PO SCH ×2 (09:05→21:02)
[2021-10-08] MEDS: Aspirin 81 MG TAB.CHEW PO SCH (09:05)
[2021-10-08 14:32] LABS: Hematocrit 23.3 % (35.3-44.9); Mean Corpuscular HGB Conc 34.3 g/dL (31.6-35.5); Mean Corpuscular Volume 93.2 fL (83.0-100.0); Mean Platelet Volume 11.4 fL (9.4-12.4); Monocytes # 1.6 K/mcL (0.0-1.3); Nucleated Red Blood Cells 0.1 /100 WBC (0); Platelet Count 333 K/mcL (140-400); Red Cell Distribution Width 13.8 % (11.5-14.5); White Blood Count 25.9 K/mcL (4.3-11.1)
[2021-10-08 14:52] LABS: Alanine Aminotransferase 53 Units/L (7-52); Albumin 2.6 g/dL (3.5-5.7); Albumin/Globulin Ratio 1.1 (1.1-2.2); Alkaline Phosphatase 151 Units/L (34-104); Aspartate Amino Transferase 97 Units/L (13-39); BUN/Creatinine Ratio 31 (6-26); Bilirubin,Direct 0.1 mg/dL (0.0-0.2); Bilirubin,Indirect 0.3 mg/dL (0.0-1.0); Bilirubin,Total 0.4 mg/dL (0.3-1.0); Blood Urea Nitrogen 16 mg/dL (8-23); Calcium 8.6 mg/dL (8.6-10.3); Carbon Dioxide 29 mEq/L (23-29); Chloride 103 mEq/L (98-107); Globulin 2.4 g/dL (2.4-3.5); Glucose 148 mg/dL (70-105); Osmolality,Calculated 286 (280-300); Potassium 3.4 mEq/L (3.5-5.1); Sodium 136 mEq/L (136-145); eGFR For African Americans > 60 (> 60); eGFR For Non-African Americans > 60 (> 60)
[2021-10-08 15:08] LABS: Lymphocytes # 2.1 K/mcL (0.6-4.6); Neutrophils # 22.3 K/mcL (1.6-8.9); Platelet Estimate Normal (Normal)
[2021-10-08] MEDS: atenoloL 50 MG TABLET PO SCH (21:02)
[2021-10-08] MEDS: Ringers Solution, Lactated 1,000 ML IVC SCH (21:04)
[2021-10-08] MEDS: Melatonin 3 MG TABLET PO PRN (21:42)
[2021-10-09] MEDS: Cefepime HCl 2,000 MG in 0.9 % Sodium Chloride 10 ML IVP SCH ×2 (04:42→15:27)
[2021-10-09] MEDS: *HR* HYDROcodone/Acet 10/325 mg TABLET PO PRN ×2 (05:55→20:58)
[2021-10-09] MEDS: Pantoprazole 40 MG VIAL IVP SCH ×2 (05:57→18:04)
[2021-10-09 07:08] LABS: Basophils % 0.3 %; Mean Platelet Volume 11.4 fL (9.4-12.4); Nucleated Red Blood Cells 0.1 /100 WBC (0); Segmented Neutrophils % 80.3 %
[2021-10-09 07:09] LABS: Basophils # 0.1 K/mcL (0.0-0.2); Eosinophils # 0.1 K/mcL (0.0-0.6); Eosinophils % 0.4 %; Hematocrit 21.8 % (35.3-44.9); Hemoglobin 7.5 g/dL (11.5-15.4); Immature Granulocytes % 4.1 % (0-4); Lymphocytes % 7.6 %; Mean Corpuscular HGB Conc 34.4 g/dL (31.6-35.5); Mean Corpuscular Hemoglobin 32.2 pg (28.0-33.3); Mean Corpuscular Volume 93.6 fL (83.0-100.0); Monocytes # 1.9 K/mcL (0.0-1.3); Monocytes % 7.3 %; Platelet Count 309 K/mcL (140-400); Red Blood Count 2.33 M/mcL (3.82-4.97); Red Cell Distribution Width 14.1 % (11.5-14.5); White Blood Count 26.2 K/mcL (4.3-11.1)
[2021-10-09 07:40] LABS: BUN/Creatinine Ratio 28 (6-26); Blood Urea Nitrogen 14 mg/dL (8-23); Calcium 8.1 mg/dL (8.6-10.3); Carbon Dioxide 27 mEq/L (23-29); Chloride 104 mEq/L (98-107); Glucose 99 mg/dL (70-105); Osmolality,Calculated 285 (280-300); Potassium 3.3 mEq/L (3.5-5.1); Sodium 137 mEq/L (136-145); eGFR For African Americans > 60 (> 60); eGFR For Non-African Americans > 60 (> 60)
[2021-10-09 07:42] LABS: Polychromasia 1+ (Not Present)
[2021-10-09 07:43] LABS: Platelet Estimate Normal (Normal)
[2021-10-09] MEDS: Aspirin 81 MG TAB.CHEW PO SCH (08:37)
[2021-10-09] MEDS: amLODIPine 5 MG TABLET PO SCH (08:37)
[2021-10-09] MEDS: Magnesium Oxide 400 MG TABLET PO SCH (08:37)
[2021-10-09] MEDS: diazePAM 5 MG TABLET PO SCH ×2 (08:38→20:58)
[2021-10-09] MEDS: MetroNIDAZOLE 500 MG/100 ML 500 MG/100 ML BAG IVPB SCH ×2 (08:39→15:27)
[2021-10-09] MEDS: Cyanocobalamin (B-12) 1,000 MCG TABLET PO SCH (08:40)
[2021-10-09 08:51] LABS: Albumin 2.5 g/dL (3.5-5.7); Albumin/Globulin Ratio 1.1 (1.1-2.2); Bilirubin,Direct 0.1 mg/dL (0.0-0.2); Bilirubin,Indirect 0.3 mg/dL (0.0-1.0); Bilirubin,Total 0.4 mg/dL (0.3-1.0); Globulin 2.3 g/dL (2.4-3.5); Total Protein 4.8 g/dL (6.4-8.9)
[2021-10-09 09:03] LABS: Hematocrit 23.4 % (35.3-44.9); Hemoglobin 7.5 g/dL (11.5-15.4)
[2021-10-09] MEDS ORDERED: Isovue-370 500 ML BOTTLE IVP ONE (10:30)
[2021-10-09] MEDS: *HR* Promethazine 25 MG/ML VIAL IM PRN (15:33)
[2021-10-09] MEDS ORDERED: polyethylene glycoL 3350 17 GM POWD.PACK PO PRN (17:54)
[2021-10-09] MEDS: atenoloL 50 MG TABLET PO SCH (20:57)
[2021-10-09] MEDS: Melatonin 3 MG TABLET PO PRN (20:58)
[2021-10-10] MEDS: MetroNIDAZOLE 500 MG/100 ML 500 MG/100 ML BAG IVPB SCH ×2 (01:38→08:57)
[2021-10-10] MEDS: Cefepime HCl 2,000 MG in 0.9 % Sodium Chloride 10 ML IVP SCH (01:40)
[2021-10-10 02:58] LABS: Hematocrit 22.7 % (35.3-44.9); Hemoglobin 7.6 g/dL (11.5-15.4); Mean Corpuscular HGB Conc 33.5 g/dL (31.6-35.5); Mean Corpuscular Hemoglobin 31.4 pg (28.0-33.3); Mean Corpuscular Volume 93.8 fL (83.0-100.0); Mean Platelet Volume 11.8 fL (9.4-12.4); Nucleated Red Blood Cells 0.2 /100 WBC (0); Platelet Count 309 K/mcL (140-400); Red Blood Count 2.42 M/mcL (3.82-4.97); Red Cell Distribution Width 14.3 % (11.5-14.5); White Blood Count 21.9 K/mcL (4.3-11.1)
[2021-10-10 03:17] LABS: Alanine Aminotransferase 34 Units/L (7-52); Albumin 2.5 g/dL (3.5-5.7); Alkaline Phosphatase 137 Units/L (34-104); Aspartate Amino Transferase 37 Units/L (13-39); BUN/Creatinine Ratio 18 (6-26); Bilirubin,Direct 0.2 mg/dL (0.0-0.2); Bilirubin,Indirect 0.2 mg/dL (0.0-1.0); Bilirubin,Total 0.4 mg/dL (0.3-1.0); Blood Urea Nitrogen 11 mg/dL (8-23); Calcium 8.1 mg/dL (8.6-10.3); Carbon Dioxide 29 mEq/L (23-29); Chloride 102 mEq/L (98-107); Globulin 2.5 g/dL (2.4-3.5); Glucose 96 mg/dL (70-105); Osmolality,Calculated 283 (280-300); Potassium 3.2 mEq/L (3.5-5.1); Sodium 137 mEq/L (136-145); eGFR For African Americans > 60 (> 60); eGFR For Non-African Americans > 60 (> 60)
[2021-10-10 03:51] LABS: Eosinophils # 0.4 K/mcL (0.0-0.6); Lymphocytes # 2.2 K/mcL (0.6-4.6); Monocytes # 1.3 K/mcL (0.0-1.3)
[2021-10-10 03:53] LABS: Platelet Estimate Normal (Normal)
[2021-10-10] MEDS: Pantoprazole 40 MG VIAL IVP SCH ×2 (05:51→16:58)
[2021-10-10] MEDS: *HR* HYDROcodone/Acet 10/325 mg TABLET PO PRN ×3 (05:51→23:45)
[2021-10-10] MEDS: diazePAM 5 MG TABLET PO SCH ×2 (08:56→21:52)
[2021-10-10] MEDS: amLODIPine 5 MG TABLET PO SCH (08:56)
[2021-10-10] MEDS: Cyanocobalamin (B-12) 1,000 MCG TABLET PO SCH (08:56)
[2021-10-10] MEDS: Magnesium Oxide 400 MG TABLET PO SCH (08:56)
[2021-10-10] MEDS: Aspirin 81 MG TAB.CHEW PO SCH (08:56)
[2021-10-10] MEDS ORDERED: Chloraseptic Spray 177 ML BOTTLE MM PRN (09:14)
[2021-10-10] MEDS: atenoloL 50 MG TABLET PO SCH (21:53)
[2021-10-11] MEDS: Pantoprazole 40 MG VIAL IVP SCH (05:52)
[2021-10-11 06:09] LABS: Basophils # 0.1 K/mcL (0.0-0.2); Basophils % 0.7 %; Eosinophils # 0.4 K/mcL (0.0-0.6); Eosinophils % 1.9 %; Hematocrit 26.7 % (35.3-44.9); Hemoglobin 8.9 g/dL (11.5-15.4); Immature Granulocytes % 5.6 % (0-4); Lymphocytes # 2.1 K/mcL (0.6-4.6); Lymphocytes % 10.4 %; Mean Corpuscular HGB Conc 33.3 g/dL (31.6-35.5); Mean Corpuscular Hemoglobin 31.7 pg (28.0-33.3); Mean Platelet Volume 11.3 fL (9.4-12.4); Monocytes # 1.6 K/mcL (0.0-1.3); Monocytes % 7.9 %; Neutrophils # 14.5 K/mcL (1.6-8.9); Nucleated Red Blood Cells 0.3 /100 WBC (0); Platelet Count 387 K/mcL (140-400); Red Blood Count 2.81 M/mcL (3.82-4.97); Red Cell Distribution Width 14.3 % (11.5-14.5); Segmented Neutrophils % 73.5 %; White Blood Count 19.7 K/mcL (4.3-11.1)
[2021-10-11 06:15] LABS: Platelet Estimate Normal (Normal)
[2021-10-11 06:28] LABS: BUN/Creatinine Ratio 13 (6-26); Blood Urea Nitrogen 7 mg/dL (8-23); Calcium 8.3 mg/dL (8.6-10.3); Carbon Dioxide 32 mEq/L (23-29); Chloride 100 mEq/L (98-107); Glucose 101 mg/dL (70-105); Osmolality,Calculated 282 (280-300); Potassium 3.2 mEq/L (3.5-5.1); Sodium 137 mEq/L (136-145); eGFR For African Americans > 60 (> 60); eGFR For Non-African Americans > 60 (> 60)
[2021-10-11 06:29] LABS: Albumin 2.7 g/dL (3.5-5.7); Bilirubin,Direct 0.1 mg/dL (0.0-0.2); Bilirubin,Indirect 0.3 mg/dL (0.0-1.0); Bilirubin,Total 0.4 mg/dL (0.3-1.0); Globulin 2.6 g/dL (2.4-3.5); Total Protein 5.3 g/dL (6.4-8.9)
[2021-10-11] MEDS: Magnesium Oxide 400 MG TABLET PO SCH (09:06)
[2021-10-11] MEDS: Cyanocobalamin (B-12) 1,000 MCG TABLET PO SCH (09:07)
[2021-10-11] MEDS: diazePAM 5 MG TABLET PO SCH ×2 (09:07→21:58)
[2021-10-11] MEDS: Aspirin 81 MG TAB.CHEW PO SCH (09:08)
[2021-10-11] MEDS: amLODIPine 5 MG TABLET PO SCH (09:08)
[2021-10-11] MEDS ORDERED: *HR* Propofol 200 MG/20 ML VIAL IVP ONE (13:26)
[2021-10-11] MEDS ORDERED: Lidocaine -MPF 2% 5 ML VIAL ONE ×2 (13:26→13:27)
[2021-10-11] MEDS ORDERED: *HR* Metoprolol 5 MG/5 ML VIAL IVP ONE (13:45)
[2021-10-11 16:42] LABS: Hepatitis B Core IgM Nonreactive (Nonreactive)
[2021-10-11] MEDS: *HR* HYDROcodone/Acet 10/325 mg TABLET PO PRN (21:58)
[2021-10-11] MEDS: Melatonin 3 MG TABLET PO PRN (21:58)
[2021-10-11] MEDS: atenoloL 50 MG TABLET PO SCH (21:59)
[2021-10-11 23:39] LABS: Adenovirus Not Detected (Not Detect); Bordetella Pertussis Not Detected (Not Detect); Chlamydophila pneumoniae Not Detected (Not Detect); Coronavirus 229E Not Detected (Not Detect); Coronavirus HKU1 Not Detected (Not Detect); Coronavirus NL63 Not Detected (Not Detect); Coronavirus OC43 Not Detected (Not Detect); Human Metapneumovirus Not Detected (Not Detect); Human Rhinovirus/Enterovirus Not Detected (Not Detect); Influenza A Subtype 2009 H1 Not Detected (Not Detect); Influenza B Not Detected (Not Detect); Mycoplasma pneumoniae Not Detected (Not Detect); Parainfluenza Virus 1 Not Detected (Not Detect); Parainfluenza Virus 2 Not Detected (Not Detect); Parainfluenza Virus 3 Not Detected (Not Detect); Parainfluenza Virus 4 Not Detected (Not Detect); Respiratory Syncytial Virus Not Detected (Not Detect); SARS-CoV-2 Not Detected (Not Detect)
[2021-10-12 05:05] VITALS: O2SAT 94
[2021-10-12 07:04] LABS: Basophils # 0.1 K/mcL (0.0-0.2); Basophils % 0.4 %; Eosinophils # 0.3 K/mcL (0.0-0.6); Eosinophils % 1.5 %; Hematocrit 28.2 % (35.3-44.9); Immature Granulocytes % 2.8 % (0-4); Lymphocytes # 1.8 K/mcL (0.6-4.6); Lymphocytes % 8.5 %; Mean Corpuscular HGB Conc 31.9 g/dL (31.6-35.5); Mean Platelet Volume 11.4 fL (9.4-12.4); Monocytes # 2.1 K/mcL (0.0-1.3); Monocytes % 9.4 %; Neutrophils # 16.8 K/mcL (1.6-8.9); Platelet Count 428 K/mcL (140-400); Red Cell Distribution Width 14.4 % (11.5-14.5); Segmented Neutrophils % 77.4 %; White Blood Count 21.7 K/mcL (4.3-11.1)
[2021-10-12 07:26] LABS: Alanine Aminotransferase 23 Units/L (7-52); Albumin 2.7 g/dL (3.5-5.7); Alkaline Phosphatase 131 Units/L (34-104); Aspartate Amino Transferase 23 Units/L (13-39); BUN/Creatinine Ratio 9 (6-26); Bilirubin,Total 0.5 mg/dL (0.3-1.0); Blood Urea Nitrogen 5 mg/dL (8-23); Calcium 8.4 mg/dL (8.6-10.3); Carbon Dioxide 32 mEq/L (23-29); Chloride 100 mEq/L (98-107); Globulin 2.8 g/dL (2.4-3.5); Glucose 102 mg/dL (70-105); Osmolality,Calculated 279 (280-300); Potassium 3.7 mEq/L (3.5-5.1); Sodium 136 mEq/L (136-145); Total Protein 5.5 g/dL (6.4-8.9); eGFR For African Americans > 60 (> 60); eGFR For Non-African Americans > 60 (> 60)
[2021-10-12] MEDS: diazePAM 5 MG TABLET PO SCH (08:04)
[2021-10-12] MEDS: amLODIPine 5 MG TABLET PO SCH (08:04)
[2021-10-12] MEDS: Aspirin 81 MG TAB.CHEW PO SCH (08:04)
[2021-10-12] MEDS: Cyanocobalamin (B-12) 1,000 MCG TABLET PO SCH (08:04)
[2021-10-12] MEDS: Magnesium Oxide 400 MG TABLET PO SCH (08:04)
[2021-10-12 10:57] VITALS: BP 131/69; PULSE 81; TEMP 97.7
== END 2021-10-12 16:05 | DRG 281 ==
LOC: 3ANU 17:08 → EMEROOARM 17:08 → SUATTDRO 20:36 → 3ANU 21:10 → SUATTDRO 10-04 08:57
PROVIDERS: ADMIT Family Medicine; ATTEND Internal Medicine
PROC: ENDOEBX (2021-10-11 13:45)

== ENCOUNTER 2021-10-16 21:30 | Inpatient (IN) ==
[2021-10-16] MEDS ORDERED: 0.9 % Sodium Chloride 1,000 ML IVC ONE (21:47)
[2021-10-16] MEDS ORDERED: Isovue-370 500 ML BOTTLE IVP ONE (21:48)
[2021-10-16] MEDS ORDERED: cefTRIAXone 1,000 MG in 0.9 % Sodium Chloride 10 ML IVP ONE (21:49)
[2021-10-16 22:22] LABS: Basophils # 0.1 K/mcL (0.0-0.2); Basophils % 0.4 %; Eosinophils # 0.1 K/mcL (0.0-0.6); Hematocrit 23.2 % (35.3-44.9); Hemoglobin 7.5 g/dL (11.5-15.4); Immature Granulocytes % 0.8 % (0-4); Lymphocytes # 1.3 K/mcL (0.6-4.6); Lymphocytes % 9.5 %; Mean Corpuscular HGB Conc 32.3 g/dL (31.6-35.5); Mean Corpuscular Hemoglobin 30.7 pg (28.0-33.3); Mean Corpuscular Volume 95.1 fL (83.0-100.0); Mean Platelet Volume 10.8 fL (9.4-12.4); Monocytes # 1.6 K/mcL (0.0-1.3); Monocytes % 11.1 %; Neutrophils # 10.8 K/mcL (1.6-8.9); Platelet Count 446 K/mcL (140-400); Red Blood Count 2.44 M/mcL (3.82-4.97); Red Cell Distribution Width 14.6 % (11.5-14.5); Segmented Neutrophils % 77.2 %
[2021-10-16 22:27] LABS: INR 1.4; Prothrombin Time 15.6 Seconds (9.4-12.1)
[2021-10-16 22:29] LABS: Activated Partial Thrombo Time 31.3 Seconds (26.0-36.0)
[2021-10-16 22:32] LABS: VBG HCO3 31 mEq/L (21-27); VBG PCO2 56 mmHg (41-51); VBG PH 7.35 pH Units (7.32-7.42); VBG PO2 49 mmHg (25-50)
[2021-10-16 22:46] LABS: Alanine Aminotransferase 14 Units/L (7-52); Albumin 2.5 g/dL (3.5-5.7); Albumin/Globulin Ratio 0.8 (1.1-2.2); Alkaline Phosphatase 90 Units/L (34-104); Aspartate Amino Transferase 17 Units/L (13-39); BUN/Creatinine Ratio 19 (6-26); Bilirubin,Direct 0.1 mg/dL (0.0-0.2); Bilirubin,Indirect 0.3 mg/dL (0.0-1.0); Bilirubin,Total 0.4 mg/dL (0.3-1.0); Blood Urea Nitrogen 13 mg/dL (8-23); Calcium 8.6 mg/dL (8.6-10.3); Carbon Dioxide 30 mEq/L (23-29); Chloride 98 mEq/L (98-107); Globulin 3.3 g/dL (2.4-3.5); Glucose 92 mg/dL (70-105); Lipase 16 Units/L (11-82); Magnesium 1.5 mg/dL (1.6-2.6); Osmolality,Calculated 278 (280-300); Potassium 4.4 mEq/L (3.5-5.1); Sodium 134 mEq/L (136-145); Total Protein 5.8 g/dL (6.4-8.9); Troponin I < 0.03 ng/mL (< 0.04); eGFR For African Americans > 60 (> 60); eGFR For Non-African Americans > 60 (> 60)
[2021-10-16 22:50] LABS: Bilirubin,Urine Negative (Negative); Blood,Urine Negative (Negative); Clarity,Urine Clear (Clear); Color,Urine Light-Yellow (Yellow); Glucose,Urine (UA) Normal (Normal); Hyaline Casts,Urine Few per lpf (None Seen); Ketones,Urine Negative (Negative); Leukocyte Esterase,Urine Negative (Negative); Nitrite,Urine Negative (Negative); Protein,Urine 50 mg/dL (Neg-Trace); RBC,Urine 0-3 per hpf (0-3); Specific Gravity,Urine 1.021 (1.010-1.025); Squamous Epithelial Cell,Urine Few per hpf (None-Few); Urobilinogen,Urine Normal (Normal)
[2021-10-16 23:51] LABS: Amphetamine Screen,Urine Negative ng/mL (Cutoff=1000); Barbiturate Screen,Urine Negative ng/mL (Cutoff=200); Benzodiazepines Screen,Urine Positive ng/mL (Cutoff=200); Cannabinoid Screen,Urine Negative ng/mL (Cutoff = 50); Cocaine Screen,Urine Negative ng/mL (Cutoff= 300); Opiate Screen,Urine Positive ng/mL (Cutoff=300); Phencyclidine Screen,Urine Negative ng/mL (Cutoff=25)
[2021-10-17] MEDS ORDERED: *HR* Heparin 5,000 UNIT/ML VIAL IVP PRN (00:23)
[2021-10-17] MEDS ORDERED: *HR* Heparin 5,000 UNIT/ML VIAL IVP ONE (00:23)
[2021-10-17] MEDS ORDERED: Ondansetron ODT 4 MG TAB.RAPDIS SL PRN (00:56)
[2021-10-17] MEDS ORDERED: Naloxone 0.4 MG/ML INJ IVP PRN (00:56)
[2021-10-17] MEDS ORDERED: cefTRIAXone 1,000 MG in 0.9 % Sodium Chloride 10 ML IVP ONE (01:00)
[2021-10-17] MEDS: Heparin 25,000UNIT/250ML 1/2NS 25,000 UNIT/250 ML IV.SOLN IVC SCH (01:41)
[2021-10-17 03:22] LABS: Hematocrit 21.4 % (35.3-44.9); Hemoglobin 6.7 g/dL (11.5-15.4); Mean Corpuscular HGB Conc 31.3 g/dL (31.6-35.5); Mean Corpuscular Hemoglobin 29.8 pg (28.0-33.3); Mean Corpuscular Volume 95.1 fL (83.0-100.0); Mean Platelet Volume 11.2 fL (9.4-12.4); Platelet Count 407 K/mcL (140-400); Red Blood Count 2.25 M/mcL (3.82-4.97); Red Cell Distribution Width 14.7 % (11.5-14.5); White Blood Count 13.9 K/mcL (4.3-11.1)
[2021-10-17 03:23] LABS: Heparin anti-factor XA UFH 0.96 IU/mL (0.30-0.70); INR 1.5; Prothrombin Time 17.1 Seconds (9.4-12.1)
[2021-10-17] MEDS: 0.9 % Sodium Chloride 1,000 ML IVC SCH ×2 (03:27→14:52)
[2021-10-17 03:44] LABS: BUN/Creatinine Ratio 19 (6-26); Blood Urea Nitrogen 11 mg/dL (8-23); Calcium 8.2 mg/dL (8.6-10.3); Carbon Dioxide 29 mEq/L (23-29); Chloride 101 mEq/L (98-107); Chol/HDL Ratio 3.6 (0-4.9); Cholesterol 50 mg/dL (< 200); Glucose 93 mg/dL (70-105); HDL Cholesterol 14 mg/dL (40-59); LDL Cholesterol,Calculated 24 mg/dL (< 100); Magnesium 1.4 mg/dL (1.6-2.6); Osmolality,Calculated 281 (280-300); Phosphorous 3.2 mg/dL (2.7-4.5); Potassium 4.2 mEq/L (3.5-5.1); Sodium 136 mEq/L (136-145); Triglycerides 58 mg/dL (< 150); eGFR For African Americans > 60 (> 60); eGFR For Non-African Americans > 60 (> 60)
[2021-10-17 05:11] LABS: Influenza A PCR Negative (Negative); Influenza B PCR Negative (Negative); Resp. Syncytial Virus PCR Negative (Negative)
[2021-10-17 05:13] LABS: SARS-CoV-2 by PCR (In House) Negative (Negative)
[2021-10-17] MEDS ORDERED: Dextrose 4 GM Chewable Tablets PO PRN ×2 (08:03)
[2021-10-17] MEDS ORDERED: D5% in Water 1,000 ML IVC PRN (08:03)
[2021-10-17] MEDS ORDERED: *HR* Dextrose 50 % in Water (Syg) 50 ML SYRINGE IVP PRN (08:03)
[2021-10-17] MEDS ORDERED: 0.9 % Sodium Chloride 250 ML IVC SCH (08:15)
[2021-10-17 08:56] LABS: Hematocrit 22.7 % (35.3-44.9); Hemoglobin 7.3 g/dL (11.5-15.4)
[2021-10-17] MEDS: Pantoprazole 40 MG VIAL IVP SCH ×2 (09:04→17:30)
[2021-10-17] MEDS: Insulin LISPRO 300 UNITS/3 ML VIAL SUBQ SCH ×2 (12:50→17:26)
[2021-10-17] MEDS: Acetaminophen 325 MG TABLET PO PRN ×2 (14:34→23:50)
[2021-10-17 16:13] LABS: Hematocrit 21.7 % (35.3-44.9); Hemoglobin 6.9 g/dL (11.5-15.4)
[2021-10-18] MEDS: Insulin LISPRO 300 UNITS/3 ML VIAL SUBQ SCH ×5 (01:10→23:58)
[2021-10-18] MEDS: cefTRIAXone 1,000 MG in 0.9 % Sodium Chloride 10 ML IVP SCH (02:49)
[2021-10-18] MEDS: Pantoprazole 40 MG VIAL IVP SCH ×2 (05:25→17:38)
[2021-10-18 10:17] LABS: Hemoglobin 8.3 g/dL (11.5-15.4)
[2021-10-18] MEDS ORDERED: *HR* FentaNYL (PF) 100 MCG/2 ML VIAL ONE (13:01)
[2021-10-18] MEDS: CloNIDine Patch 0.3 MG PATCH (WEEKLY) TD SCH (17:39)
[2021-10-18] MEDS ORDERED: *HR* Propofol 500 MG/50 ML BOTTLE IVP ONE (17:59)
[2021-10-18] MEDS ORDERED: Ondansetron 4 MG/2 ML VIAL IVP ONE (17:59)
[2021-10-18] MEDS ORDERED: Lidocaine -MPF 2% 5 ML VIAL SQ ONE (17:59)
[2021-10-18] MEDS ORDERED: *HR* Succinylcholine 200 MG/10 ML VIAL IVP ONE (17:59)
[2021-10-18] MEDS ORDERED: cefTRIAXone 2,000 MG in 0.9 % Sodium Chloride 10 ML IVP SCH (18:00)
[2021-10-18] MEDS: *HR* HYDROcodone/Acet 10/325 mg TABLET PO PRN (18:04)
[2021-10-18 18:14] LABS: Hematocrit 29.8 % (35.3-44.9); Hemoglobin 9.2 g/dL (11.5-15.4)
[2021-10-18] MEDS: atenoloL 50 MG TABLET PO SCH (19:57)
[2021-10-18] MEDS: diazePAM 5 MG TABLET PO SCH (19:57)
[2021-10-18] MEDS: Heparin 25,000UNIT/250ML 1/2NS 25,000 UNIT/250 ML IV.SOLN IVC SCH (19:58)
[2021-10-18 20:47] LABS: Hematocrit 29.5 % (35.3-44.9); Hemoglobin 9.4 g/dL (11.5-15.4)
[2021-10-18] MEDS ORDERED: atenoloL 50 MG TABLET PO SCH (21:00)
[2021-10-19] MEDS: *HR* HYDROcodone/Acet 10/325 mg TABLET PO PRN ×3 (00:55→20:12)
[2021-10-19 03:04] LABS: Basophils % 0.2 %; Hemoglobin 8.7 g/dL (11.5-15.4); Immature Granulocytes % 0.9 % (0-4); Lymphocytes # 0.5 K/mcL (0.6-4.6); Lymphocytes % 11.5 %; Mean Corpuscular HGB Conc 31.1 g/dL (31.6-35.5); Mean Corpuscular Volume 93.3 fL (83.0-100.0); Mean Platelet Volume 10.8 fL (9.4-12.4); Monocytes # 0.1 K/mcL (0.0-1.3); Monocytes % 2.8 %; Platelet Count 391 K/mcL (140-400); Red Cell Distribution Width 14.6 % (11.5-14.5); Segmented Neutrophils % 84.6 %
[2021-10-19 03:05] LABS: White Blood Count 4.7 K/mcL (4.3-11.1)
[2021-10-19] MEDS: Heparin 25,000UNIT/250ML 1/2NS 25,000 UNIT/250 ML IV.SOLN IVC SCH ×2 (03:05→13:45)
[2021-10-19] MEDS: cefTRIAXone 1,000 MG in 0.9 % Sodium Chloride 10 ML IVP SCH (03:30)
[2021-10-19 03:39] LABS: BUN/Creatinine Ratio 21 (6-26); Blood Urea Nitrogen 9 mg/dL (8-23); Calcium 8.4 mg/dL (8.6-10.3); Carbon Dioxide 27 mEq/L (23-29); Chloride 104 mEq/L (98-107); Glucose 141 mg/dL (70-105); Magnesium 1.4 mg/dL (1.6-2.6); Osmolality,Calculated 283 (280-300); Phosphorous 2.9 mg/dL (2.7-4.5); Potassium 4.8 mEq/L (3.5-5.1); Sodium 136 mEq/L (136-145); eGFR For African Americans > 60 (> 60); eGFR For Non-African Americans > 60 (> 60)
[2021-10-19] MEDS: Insulin LISPRO 300 UNITS/3 ML VIAL SUBQ SCH ×4 (06:03→23:20)
[2021-10-19] MEDS: Pantoprazole 40 MG VIAL IVP SCH ×2 (06:17→17:47)
[2021-10-19] MEDS: Acetaminophen 325 MG TABLET PO PRN (06:18)
[2021-10-19] MEDS ORDERED: BIOTIN 800 MCG PO SCH (09:00)
[2021-10-19] MEDS: Cyanocobalamin (B-12) 1,000 MCG TABLET PO SCH (09:39)
[2021-10-19] MEDS: Cholecalciferol (D-3) 1,000 UNIT (25MCG) TABLET PO SCH (09:39)
[2021-10-19] MEDS: diazePAM 5 MG TABLET PO SCH ×2 (09:40→20:12)
[2021-10-19] MEDS: Magnesium Oxide 400 MG TABLET PO SCH (09:40)
[2021-10-19 13:02] LABS: Hematocrit 30.7 % (35.3-44.9); Hemoglobin 9.6 g/dL (11.5-15.4); Mean Corpuscular HGB Conc 31.3 g/dL (31.6-35.5); Mean Corpuscular Hemoglobin 29.2 pg (28.0-33.3); Mean Corpuscular Volume 93.3 fL (83.0-100.0); Mean Platelet Volume 10.8 fL (9.4-12.4); Platelet Count 450 K/mcL (140-400); Red Blood Count 3.29 M/mcL (3.82-4.97); Red Cell Distribution Width 14.5 % (11.5-14.5)
[2021-10-19 13:03] LABS: White Blood Count 9.6 K/mcL (4.3-11.1)
[2021-10-19 13:04] LABS: Heparin anti-factor XA UFH < 0.04 IU/mL (0.30-0.70); INR 1.1; Prothrombin Time 12.1 Seconds (9.4-12.1)
[2021-10-19 13:13] LABS: Activated Partial Thrombo Time 19.2 Seconds (26.0-36.0)
[2021-10-19] MEDS ORDERED: Sennosides/Docusate Sodium TABLET PO PRN (17:10)
[2021-10-19 18:12] LABS: Hematocrit 31.9 % (35.3-44.9); Hemoglobin 9.7 g/dL (11.5-15.4)
[2021-10-19] MEDS: *HR* Heparin 5,000 UNIT/ML VIAL IVP PRN (18:56)
[2021-10-19] MEDS: Cefdinir 300 MG CAPSULE PO SCH (20:12)
[2021-10-19] MEDS: atenoloL 50 MG TABLET PO SCH (20:12)
[2021-10-19] MEDS: Melatonin 3 MG TABLET PO PRN (23:28)
[2021-10-20] MEDS ORDERED: diazePAM 5 MG TABLET PO ONE (01:36)
[2021-10-20] MEDS: *HR* HYDROcodone/Acet 10/325 mg TABLET PO PRN ×2 (04:21→20:04)
[2021-10-20] MEDS: Pantoprazole 40 MG VIAL IVP SCH (06:10)
[2021-10-20] MEDS: Insulin LISPRO 300 UNITS/3 ML VIAL SUBQ SCH ×3 (07:56→17:14)
[2021-10-20] MEDS: Cholecalciferol (D-3) 1,000 UNIT (25MCG) TABLET PO SCH (09:06)
[2021-10-20] MEDS: Cefdinir 300 MG CAPSULE PO SCH ×2 (09:07→20:03)
[2021-10-20] MEDS: diazePAM 5 MG TABLET PO SCH ×2 (09:08→20:04)
[2021-10-20] MEDS: Magnesium Oxide 400 MG TABLET PO SCH (09:09)
[2021-10-20] MEDS: Cyanocobalamin (B-12) 1,000 MCG TABLET PO SCH (09:10)
[2021-10-20 10:00] LABS: BUN/Creatinine Ratio 15 (6-26); Blood Urea Nitrogen 8 mg/dL (8-23); Calcium 9.2 mg/dL (8.6-10.3); Carbon Dioxide 29 mEq/L (23-29); Chloride 102 mEq/L (98-107); Glucose 125 mg/dL (70-105); Hematocrit 31.9 % (35.3-44.9); Magnesium 1.6 mg/dL (1.6-2.6); Mean Corpuscular HGB Conc 31.3 g/dL (31.6-35.5); Mean Corpuscular Hemoglobin 29.8 pg (28.0-33.3); Mean Corpuscular Volume 94.9 fL (83.0-100.0); Mean Platelet Volume 10.7 fL (9.4-12.4); Osmolality,Calculated 286 (280-300); Phosphorous 2.5 mg/dL (2.7-4.5); Platelet Count 481 K/mcL (140-400); Potassium 4.4 mEq/L (3.5-5.1); Red Blood Count 3.36 M/mcL (3.82-4.97); Red Cell Distribution Width 14.8 % (11.5-14.5); Sodium 138 mEq/L (136-145); White Blood Count 14.4 K/mcL (4.3-11.1); eGFR For African Americans > 60 (> 60); eGFR For Non-African Americans > 60 (> 60)
[2021-10-20] MEDS ORDERED: Hydrocortisone Rectal 2.5% CRM 28 GM TUBE RC PRN (10:42)
[2021-10-20] MEDS ORDERED: Magnesium Oxide 400 MG TABLET PO ONE (12:40)
[2021-10-20] MEDS: polyethylene glycoL 3350 17 GM POWD.PACK PO SCH (13:37)
[2021-10-20] MEDS: *HR* Heparin 5,000 UNIT/ML VIAL IVP PRN (14:26)
[2021-10-20] MEDS: Heparin 25,000UNIT/250ML 1/2NS 25,000 UNIT/250 ML IV.SOLN IVC SCH (16:46)
[2021-10-20] MEDS: atenoloL 50 MG TABLET PO SCH (20:04)
[2021-10-20] MEDS: Lactobacillus 1 EACH CAP.SPRINK PO SCH (20:04)
[2021-10-20] MEDS: *HR* Rivaroxaban 15 MG TABLET PO SCH (20:04)
[2021-10-20] MEDS ORDERED: *HR* Rivaroxaban 15 MG TABLET PO SCH (21:00)
[2021-10-21] MEDS: *HR* HYDROcodone/Acet 10/325 mg TABLET PO PRN ×2 (02:41→22:29)
[2021-10-21 03:02] LABS: Hematocrit 28.6 % (35.3-44.9); Hemoglobin 8.9 g/dL (11.5-15.4); Mean Corpuscular HGB Conc 31.1 g/dL (31.6-35.5); Mean Corpuscular Hemoglobin 29.2 pg (28.0-33.3); Mean Corpuscular Volume 93.8 fL (83.0-100.0); Mean Platelet Volume 10.7 fL (9.4-12.4); Platelet Count 355 K/mcL (140-400); Red Blood Count 3.05 M/mcL (3.82-4.97); Red Cell Distribution Width 14.8 % (11.5-14.5); White Blood Count 10.1 K/mcL (4.3-11.1)
[2021-10-21 03:20] LABS: BUN/Creatinine Ratio 11 (6-26); Blood Urea Nitrogen 6 mg/dL (8-23); Calcium 8.6 mg/dL (8.6-10.3); Carbon Dioxide 32 mEq/L (23-29); Chloride 102 mEq/L (98-107); Glucose 87 mg/dL (70-105); Magnesium 1.3 mg/dL (1.6-2.6); Osmolality,Calculated 285 (280-300); Phosphorous 3.5 mg/dL (2.7-4.5); Potassium 3.8 mEq/L (3.5-5.1); Sodium 139 mEq/L (136-145); eGFR For African Americans > 60 (> 60); eGFR For Non-African Americans > 60 (> 60)
[2021-10-21] MEDS: Insulin LISPRO 300 UNITS/3 ML VIAL SUBQ SCH ×3 (07:27→11:18)
[2021-10-21] MEDS: Aspirin Enteric Coated 81 MG Tablet PO SCH (08:37)
[2021-10-21] MEDS: Lactobacillus 1 EACH CAP.SPRINK PO SCH ×2 (08:37→22:29)
[2021-10-21] MEDS: Magnesium Oxide 400 MG TABLET PO SCH (08:38)
[2021-10-21] MEDS: Cefdinir 300 MG CAPSULE PO SCH ×2 (08:39→22:29)
[2021-10-21] MEDS: polyethylene glycoL 3350 17 GM POWD.PACK PO SCH (08:39)
[2021-10-21] MEDS: diazePAM 5 MG TABLET PO SCH ×2 (08:40→22:29)
[2021-10-21] MEDS: Cyanocobalamin (B-12) 1,000 MCG TABLET PO SCH (08:41)
[2021-10-21] MEDS: Cholecalciferol (D-3) 1,000 UNIT (25MCG) TABLET PO SCH (08:42)
[2021-10-21] MEDS: *HR* Rivaroxaban 15 MG TABLET PO SCH ×2 (08:43→22:29)
[2021-10-21] MEDS ORDERED: Magnesium Oxide 400 MG TABLET PO ONE (10:33)
[2021-10-21 10:42] LABS: Hematocrit 29.6 % (35.3-44.9); Hemoglobin 9.2 g/dL (11.5-15.4)
[2021-10-21] MEDS ORDERED: MOM Conc 10 ML UD.LIQ PO ONE (15:37)
[2021-10-21] MEDS: atenoloL 50 MG TABLET PO SCH (22:29)
[2021-10-22] MEDS: *HR* HYDROcodone/Acet 10/325 mg TABLET PO PRN ×2 (05:45→21:18)
[2021-10-22 06:00] LABS: Hematocrit 30.6 % (35.3-44.9); Hemoglobin 9.6 g/dL (11.5-15.4); Mean Corpuscular HGB Conc 31.4 g/dL (31.6-35.5); Mean Corpuscular Hemoglobin 29.1 pg (28.0-33.3); Mean Corpuscular Volume 92.7 fL (83.0-100.0); Mean Platelet Volume 10.5 fL (9.4-12.4); Platelet Count 351 K/mcL (140-400); Red Cell Distribution Width 15.1 % (11.5-14.5); White Blood Count 9.2 K/mcL (4.3-11.1)
[2021-10-22 06:17] LABS: BUN/Creatinine Ratio 9 (6-26); Blood Urea Nitrogen 4 mg/dL (8-23); Calcium 8.8 mg/dL (8.6-10.3); Carbon Dioxide 29 mEq/L (23-29); Chloride 102 mEq/L (98-107); Glucose 85 mg/dL (70-105); Magnesium 1.4 mg/dL (1.6-2.6); Osmolality,Calculated 280 (280-300); Phosphorous 3.1 mg/dL (2.7-4.5); Potassium 4.3 mEq/L (3.5-5.1); Sodium 137 mEq/L (136-145); eGFR For African Americans > 60 (> 60); eGFR For Non-African Americans > 60 (> 60)
[2021-10-22] MEDS: Aspirin Enteric Coated 81 MG Tablet PO SCH (08:44)
[2021-10-22] MEDS: Cyanocobalamin (B-12) 1,000 MCG TABLET PO SCH (08:44)
[2021-10-22] MEDS: Lactobacillus 1 EACH CAP.SPRINK PO SCH ×2 (08:44→21:11)
[2021-10-22] MEDS: Cholecalciferol (D-3) 1,000 UNIT (25MCG) TABLET PO SCH (08:44)
[2021-10-22] MEDS: Cefdinir 300 MG CAPSULE PO SCH (08:44)
[2021-10-22] MEDS: *HR* Rivaroxaban 15 MG TABLET PO SCH ×2 (08:45→21:12)
[2021-10-22] MEDS: Magnesium Oxide 400 MG TABLET PO SCH (08:45)
[2021-10-22] MEDS: diazePAM 5 MG TABLET PO SCH ×2 (08:45→21:11)
[2021-10-22] MEDS: polyethylene glycoL 3350 17 GM POWD.PACK PO SCH (08:47)
[2021-10-22] MEDS ORDERED: Magnesium Sulfate 1 GM/102 ML PIGGYBACK IVPB ONE (10:31)
[2021-10-22] MEDS: atenoloL 50 MG TABLET PO SCH (21:11)
[2021-10-22] MEDS: Melatonin 3 MG TABLET PO PRN (21:13)
[2021-10-23 02:44] LABS: Hematocrit 28.6 % (35.3-44.9); Hemoglobin 9.1 g/dL (11.5-15.4); Mean Corpuscular HGB Conc 31.8 g/dL (31.6-35.5); Mean Corpuscular Hemoglobin 29.6 pg (28.0-33.3); Mean Corpuscular Volume 93.2 fL (83.0-100.0); Mean Platelet Volume 10.8 fL (9.4-12.4); Platelet Count 354 K/mcL (140-400); Red Blood Count 3.07 M/mcL (3.82-4.97); White Blood Count 9.5 K/mcL (4.3-11.1)
[2021-10-23 02:59] LABS: BUN/Creatinine Ratio 8 (6-26); Blood Urea Nitrogen 4 mg/dL (8-23); Calcium 8.4 mg/dL (8.6-10.3); Carbon Dioxide 29 mEq/L (23-29); Chloride 102 mEq/L (98-107); Glucose 95 mg/dL (70-105); Magnesium 1.6 mg/dL (1.6-2.6); Osmolality,Calculated 279 (280-300); Phosphorous 3.7 mg/dL (2.7-4.5); Potassium 4.1 mEq/L (3.5-5.1); Sodium 136 mEq/L (136-145); eGFR For African Americans > 60 (> 60); eGFR For Non-African Americans > 60 (> 60)
[2021-10-23] MEDS: polyethylene glycoL 3350 17 GM POWD.PACK PO SCH (08:18)
[2021-10-23] MEDS: Magnesium Oxide 400 MG TABLET PO SCH (08:18)
[2021-10-23] MEDS: *HR* HYDROcodone/Acet 10/325 mg TABLET PO PRN ×2 (08:31→16:28)
[2021-10-23] MEDS: Cholecalciferol (D-3) 1,000 UNIT (25MCG) TABLET PO SCH (08:31)
[2021-10-23] MEDS: Cyanocobalamin (B-12) 1,000 MCG TABLET PO SCH (08:31)
[2021-10-23] MEDS: Lactobacillus 1 EACH CAP.SPRINK PO SCH ×2 (08:31→21:39)
[2021-10-23] MEDS: diazePAM 5 MG TABLET PO SCH ×2 (08:32→21:39)
[2021-10-23] MEDS: *HR* Rivaroxaban 15 MG TABLET PO SCH ×2 (08:32→21:39)
[2021-10-23] MEDS: Aspirin Enteric Coated 81 MG Tablet PO SCH (08:32)
[2021-10-23] MEDS: Melatonin 3 MG TABLET PO PRN (21:39)
[2021-10-23] MEDS: atenoloL 50 MG TABLET PO SCH (21:39)
[2021-10-24] MEDS: Lactobacillus 1 EACH CAP.SPRINK PO SCH ×2 (07:57→20:12)
[2021-10-24] MEDS: Cholecalciferol (D-3) 1,000 UNIT (25MCG) TABLET PO SCH (07:57)
[2021-10-24] MEDS: Aspirin Enteric Coated 81 MG Tablet PO SCH (07:57)
[2021-10-24] MEDS: polyethylene glycoL 3350 17 GM POWD.PACK PO SCH (07:59)
[2021-10-24] MEDS: Magnesium Oxide 400 MG TABLET PO SCH (07:59)
[2021-10-24] MEDS: Cyanocobalamin (B-12) 1,000 MCG TABLET PO SCH (07:59)
[2021-10-24] MEDS: *HR* Rivaroxaban 15 MG TABLET PO SCH ×2 (07:59→20:12)
[2021-10-24] MEDS: diazePAM 5 MG TABLET PO SCH ×2 (07:59→20:12)
[2021-10-24] MEDS: *HR* HYDROcodone/Acet 10/325 mg TABLET PO PRN ×2 (08:12→17:24)
[2021-10-24 10:37] LABS: Basophils # 0.1 K/mcL (0.0-0.2); Basophils % 0.9 %; Eosinophils # 0.6 K/mcL (0.0-0.6); Eosinophils % 6.5 %; Hematocrit 29.9 % (35.3-44.9); Hemoglobin 9.4 g/dL (11.5-15.4); Immature Granulocytes % 0.9 % (0-4); Lymphocytes # 1.2 K/mcL (0.6-4.6); Lymphocytes % 12.6 %; Mean Corpuscular HGB Conc 31.4 g/dL (31.6-35.5); Mean Corpuscular Hemoglobin 29.6 pg (28.0-33.3); Mean Platelet Volume 10.9 fL (9.4-12.4); Monocytes # 1.4 K/mcL (0.0-1.3); Platelet Count 374 K/mcL (140-400); Red Blood Count 3.18 M/mcL (3.82-4.97); Red Cell Distribution Width 15.3 % (11.5-14.5); Segmented Neutrophils % 64.1 %; White Blood Count 9.3 K/mcL (4.3-11.1)
[2021-10-24 10:40] LABS: Adenovirus Not Detected (Not Detect); Bordetella Pertussis Not Detected (Not Detect); Chlamydophila pneumoniae Not Detected (Not Detect); Coronavirus 229E Not Detected (Not Detect); Coronavirus HKU1 Not Detected (Not Detect); Coronavirus NL63 Not Detected (Not Detect); Coronavirus OC43 Not Detected (Not Detect); Human Metapneumovirus Not Detected (Not Detect); Human Rhinovirus/Enterovirus Not Detected (Not Detect); Influenza A Subtype 2009 H1 Not Detected (Not Detect); Influenza B Not Detected (Not Detect); Mycoplasma pneumoniae Not Detected (Not Detect); Parainfluenza Virus 1 Not Detected (Not Detect); Parainfluenza Virus 2 Not Detected (Not Detect); Parainfluenza Virus 3 Not Detected (Not Detect); Parainfluenza Virus 4 Not Detected (Not Detect); Respiratory Syncytial Virus Not Detected (Not Detect); SARS-CoV-2 Not Detected (Not Detect)
[2021-10-24] MEDS: amLODIPine 5 MG TABLET PO SCH (10:47)
[2021-10-24 11:02] LABS: BUN/Creatinine Ratio 11 (6-26); Blood Urea Nitrogen 7 mg/dL (8-23); Calcium 8.8 mg/dL (8.6-10.3); Carbon Dioxide 29 mEq/L (23-29); Chloride 101 mEq/L (98-107); Glucose 121 mg/dL (70-105); Osmolality,Calculated 281 (280-300); Sodium 136 mEq/L (136-145); eGFR For African Americans > 60 (> 60); eGFR For Non-African Americans > 60 (> 60)
[2021-10-24] MEDS ORDERED: Saline Nasal Spray 44 ML BOTTLE NS PRN (11:04)
[2021-10-24 18:49] LABS: Bacteria,Urine Few per hpf (None-Few); Bilirubin,Urine Negative (Negative); Blood,Urine Negative (Negative); Clarity,Urine Clear (Clear); Color,Urine Yellow (Yellow); Glucose,Urine (UA) Normal (Normal); Hyaline Casts,Urine Few per lpf (None Seen); Ketones,Urine Negative (Negative); Leukocyte Esterase,Urine Small (Negative); Mucus,Urine Few per lpf (None-Few); Nitrite,Urine Negative (Negative); PH,Urine 6.5 pH Units (5.0-8.0); Protein,Urine 30 mg/dL (Neg-Trace); RBC,Urine 0-3 per hpf (0-3); Specific Gravity,Urine 1.019 (1.010-1.025); Squamous Epithelial Cell,Urine Moderate per hpf (None-Few); Urobilinogen,Urine Normal (Normal); WBC,Urine 30-50 per hpf (0-3)
[2021-10-24] MEDS: atenoloL 50 MG TABLET PO SCH (20:12)
[2021-10-25] MEDS: *HR* HYDROcodone/Acet 10/325 mg TABLET PO PRN ×3 (03:04→20:44)
[2021-10-25] MEDS: polyethylene glycoL 3350 17 GM POWD.PACK PO SCH (09:02)
[2021-10-25] MEDS: Lactobacillus 1 EACH CAP.SPRINK PO SCH ×2 (09:02→20:25)
[2021-10-25] MEDS: amLODIPine 5 MG TABLET PO SCH (09:04)
[2021-10-25] MEDS: Cyanocobalamin (B-12) 1,000 MCG TABLET PO SCH (09:04)
[2021-10-25] MEDS: Aspirin Enteric Coated 81 MG Tablet PO SCH (09:05)
[2021-10-25] MEDS: diazePAM 5 MG TABLET PO SCH ×2 (09:05→20:25)
[2021-10-25] MEDS: *HR* Rivaroxaban 15 MG TABLET PO SCH ×2 (09:05→20:25)
[2021-10-25] MEDS: Magnesium Oxide 400 MG TABLET PO SCH (09:05)
[2021-10-25] MEDS: Cholecalciferol (D-3) 1,000 UNIT (25MCG) TABLET PO SCH (09:05)
[2021-10-25] MEDS: CloNIDine Patch 0.3 MG PATCH (WEEKLY) TD SCH (15:14)
[2021-10-25] MEDS: atenoloL 50 MG TABLET PO SCH (20:25)
[2021-10-26] MEDS: polyethylene glycoL 3350 17 GM POWD.PACK PO SCH (10:03)
[2021-10-26] MEDS: Magnesium Oxide 400 MG TABLET PO SCH (10:03)
[2021-10-26] MEDS: Cholecalciferol (D-3) 1,000 UNIT (25MCG) TABLET PO SCH (10:03)
[2021-10-26] MEDS: Lactobacillus 1 EACH CAP.SPRINK PO SCH (10:03)
[2021-10-26] MEDS: diazePAM 5 MG TABLET PO SCH (10:04)
[2021-10-26] MEDS: *HR* Rivaroxaban 15 MG TABLET PO SCH (10:04)
[2021-10-26] MEDS: Aspirin Enteric Coated 81 MG Tablet PO SCH (10:04)
[2021-10-26] MEDS: amLODIPine 5 MG TABLET PO SCH (10:04)
[2021-10-26] MEDS: Cyanocobalamin (B-12) 1,000 MCG TABLET PO SCH (10:05)
[2021-10-26] MEDS: *HR* HYDROcodone/Acet 10/325 mg TABLET PO PRN (10:10)
[2021-10-26 14:58] VITALS: TEMP 97.9
[2021-10-26 15:07] VITALS: BP 102/49; PULSE 79; O2SAT 93
[2021-10-26 15:26] LABS: Adenovirus Not Detected (Not Detect); Bordetella Pertussis Not Detected (Not Detect); Chlamydophila pneumoniae Not Detected (Not Detect); Coronavirus 229E Not Detected (Not Detect); Coronavirus HKU1 Not Detected (Not Detect); Coronavirus NL63 Not Detected (Not Detect); Coronavirus OC43 Not Detected (Not Detect); Human Metapneumovirus Not Detected (Not Detect); Human Rhinovirus/Enterovirus Not Detected (Not Detect); Influenza A Subtype 2009 H1 Not Detected (Not Detect); Influenza B Not Detected (Not Detect); Mycoplasma pneumoniae Not Detected (Not Detect); Parainfluenza Virus 1 Not Detected (Not Detect); Parainfluenza Virus 2 Not Detected (Not Detect); Parainfluenza Virus 3 Not Detected (Not Detect); Parainfluenza Virus 4 Not Detected (Not Detect); Respiratory Syncytial Virus Not Detected (Not Detect); SARS-CoV-2 Not Detected (Not Detect)
== END 2021-10-26 18:05 | DRG 441 ==
LOC: EMEROOARM 21:30 → 2NENU 21:30 → SUATTDRO 10-17 01:02 → 2NENU 10-17 02:06 → SUATTDRO 10-18 12:30
PROVIDERS: ADMIT Internal Medicine; ATTEND Internal Medicine
PROC: ENDOEBX (2021-10-18 14:30)